=== PATIENT | male | born 1965 ===

== ENCOUNTER 2020-12-15 11:01 | Inpatient (IN) | payer MEDICAID ==
[~2020-12-15] VITALS: Ht 188 cm; Wt 109.1 kg
[2020-12-15] MEDS ORDERED: dexamethasone sod phosphate 10mg/ml inj IV STA (12:06)
[2020-12-15] MEDS ORDERED: diltiazem 5mg/ml 5ml inj. IV ONE (12:40)
[2020-12-15 13:00] LABS: ABG BASE EXCESS 3.3 mmol/L (-2.0-2.0); ABG HCO3 25.6 mmol/L (22.0-26.0); ABG PCO2 (T) 33.3 mmHg (35.0-48.0); ABG PO2 (T) 57.7 mmHg (75.0-100.0); ALLEN'S TEST POSITIVE; FCOHb 0.7 % (0.0-3.9); FLOW 15 L/min; FMetHb 0.1 % (0.0-1.5); FO2Hb 90.3 % (94-97); PATIENT TEMPERATURE 37.8; TOTAL HEMOGLOBIN 14.9 G/dl (14.0-18.0)
[2020-12-15 13:01] LABS: BASOPHILS % (AUTO) 0.2 % (0-1); EOSINOPHILS % (AUTO) 0 % (0-6); HEMATOCRIT 42.2 % (42.0-52.0); HEMOGLOBIN 14.6 g/dl (14.0-17.9); LYMPHOCYTES # (AUTO) 0.6 X10'3 (1.1-4.8); LYMPHOCYTES % (AUTO) 12.6 % (21-51); MEAN CORPUSCULAR HEMOGLOBIN 30.7 PG (27.0-31.0); MEAN CORPUSCULAR HGB CONC 34.7 g/dL (33.0-36.5); MEAN CORPUSCULAR VOLUME 88.3 FL (78-98); MEAN PLATELET VOLUME 8.6 FL (7.4-10.4); MONOCYTES # (AUTO) 0.6 X10'3 (0-0.9); MONOCYTES % (AUTO) 12.6 % (2-12); NEUTROPHILS # (AUTO) 3.3 X10'3 (1.8-7.7); NEUTROPHILS % (AUTO) 74.6 % (42-75); PLATELET COUNT 148 X10'3 (140-440); RED BLOOD COUNT 4.78 X10'6 (4.70-6.10); RED CELL DISTRIBUTION WIDTH 13.3 % (11.5-14.5); WHITE BLOOD COUNT 4.4 X10'3 (4.5-11.0)
[2020-12-15 13:12] LABS: ALANINE AMINOTRANSFERASE 54 U/L (12-78); ALBUMIN 3.1 G/DL (3.4-5.0); ALBUMIN/GLOBULIN RATIO 0.8 (1.1-1.5); ALKALINE PHOSPHATASE 39 IU/L (46-116); ANION GAP 12 (8-16); ASPARTATE AMINO TRANSFERASE 70 U/L (10-37); BILIRUBIN,TOTAL 0.6 MG/DL (0.1-1.0); BLOOD UREA NITROGEN 21 MG/DL (7-18); BUN/CREATININE RATIO 17.6 (5.4-32.0); CHLORIDE 101 MMOL/L (99-107); CREATININE 1.19 MG/DL (0.60-1.10); GLUCOSE 133 MG/DL (70-104); SODIUM 138 MMOL/L (135-145); TOTAL CARBON DIOXIDE 25.1 MMOL/L (24-32); TOTAL PROTEIN 7.1 G/DL (6.4-8.2); eGFR 63 ML/MIN
[2020-12-15] MEDS ORDERED: acetaminophen 325mg tablet PO ONE (13:15)
[2020-12-15 13:20] LABS: D-DIMER 0.81 MG/L FEU (0-0.50); PARTIAL THROMBOPLASTIN TIME 30 SECONDS (22-32)
[2020-12-15] MEDS ORDERED: dexamethasone 6 MG in D5W 100ml IV soln IV ONE (13:30)
[2020-12-15] MEDS ORDERED: iohexol 350MG/ML 100ml bottle IV ONE (13:36)
[2020-12-15] MEDS ORDERED: diltiazem-NS 100mg/100ml 100 ML IV SCH (13:40)
[2020-12-15 13:48] LABS: C-REACTIVE PROTEIN 9.71 MG/DL (0.0-0.5); FERRITIN 1489 NG/ML (26-388); LACTATE DEHYDROGENASE 584 U/L (85-227)
[2020-12-15] MEDS ORDERED: REMDESIVIR INJ 200 MG in normal saline 100ml IV soln 60 ML IV ONE (14:30)
--- NOTE | 2020-12-15 14:38 | NUR ---
BACK FROM CT ACCOMPANIED BY NURSE AND TECH. TOLERATED WELL.
--- NOTE | 2020-12-15 15:21 | NUR ---
V60 PLUS Addendum: 12/15/20 at 1522 by Lacie CAMPOS Amended: Links added.
[2020-12-15] MEDS ORDERED: bisacodyl 10mg suppository rectal RC PRN (15:40)
[2020-12-15] MEDS ORDERED: morphine 2 MG/ML inj. syringe IV PRN ×2 (15:40)
[2020-12-15] MEDS ORDERED: magnesium Cl slow-release 64mg tablet PO PRN (15:40)
[2020-12-15] MEDS ORDERED: PERFLUTREN PROTEIN-A MICROSPHR (Optison) 0.22 MG/ML 3ML VIAL IV ONE (15:40)
[2020-12-15] MEDS ORDERED: acetaminophen 650mg rectal suppository RC PRN (15:40)
[2020-12-15] MEDS ORDERED: HYDROcodone/acetaminophen 10/325mg tab PO PRN (15:40)
[2020-12-15] MEDS ORDERED: magnesium 2GM in 50ml NS 50 ML IV PRN (15:40)
[2020-12-15] MEDS ORDERED: potassium Cl 20 mEq SR tablet PO PRN ×2 (15:40)
[2020-12-15] MEDS ORDERED: magnesium 4gm in 100ml NS 100 ML IV PRN (15:40)
[2020-12-15] MEDS ORDERED: HYDROcodone/acetaminophen 5mg/325mg tablet PO PRN (15:40)
[2020-12-15] MEDS ORDERED: acetaminophen 325mg tablet PO PRN (15:40)
[2020-12-15] MEDS ORDERED: diphenhydrAMINE 25mg capsule PO PRN (15:40)
[2020-12-15] MEDS ORDERED: ondansetron/PF 4mg/2ml inj IV PRN (15:40)
[2020-12-15] MEDS ORDERED: potassium Cl 40MEQ/1/2NS 520ml 520 ML IV PRN ×2 (15:40)
[2020-12-15] MEDS ORDERED: magnesium hydroxide 30ml (MOM) UD suspension PO PRN (15:40)
[2020-12-15] MEDS ORDERED: diltiazem-D5W 125mg/125ml 125 ML IV SCH (15:45)
[2020-12-15] MEDS ORDERED: IBUP-24 PO (15:54)
--- NOTE | 2020-12-15 15:56 | NUR ---
cande sister [phone]
[2020-12-15 16:07] LABS: HEMOGLOBIN A1C 6.1 % (4.5-6.2)
[2020-12-15] MEDS: normal saline 1000ml 1,000 ML IV SCH (18:22)
[2020-12-15 18:55] LABS: CLARITY,URINE CLEAR (Clear); COLOR,URINE YELLOW (Yellow); UA COLLECTION TYPE CLN CATCH MIDSTREAM
[2020-12-15 18:56] LABS: GLUCOSE, URINE NEGATIVE (Neg); KETONES,URINE NEGATIVE (Neg); LEUKOCYTE ESTERASE ,URINE NEGATIVE (Neg); NITRITES, URINE NEGATIVE (Neg); OCCULT BLOOD,URINE MODERATE (Neg); PROTEIN,URINE 100 mg/dl (Neg); UROBILINOGEN,URINE 0.2 E.U/dL (0.2-1.0)
[2020-12-15 18:58] LABS: BACTERIA,URINE NONE SEEN /HPF (Neg); RBC,URINE 0-2 /HPF (0-2); SQUAMOUS EPITHELIAL CELL,UR FEW /LPF (FEW); WBC,URINE 0-4 /HPF (0-4)
--- NOTE | 2020-12-15 19:24 | NUR ---
ASSUMED CARE OF PT. PT ON HI FLOW 100% SATTING AT 94%. WAITING ON RT EVALUATION. PRIOR RN PAGED RT. PT AFEBRILE BUT PROFUSELY DIAPHORETIC. DENIES CHEST PAIN. TROPONINS UNREMARKABLE. WILL SPEAK TO HOSPITALIST CONCERNING HEART RATE. PT'S ONLY COMPLAINT IS SHORTNESS OF BREATH AT THIS TIME.
--- NOTE | 2020-12-15 19:45 | NUR ---
SPOKE TO DR FIGUEROA CONCERNING PT'S HEART RHYTHM AND RATE. PENDING NEW MEDICATION ORDERS
--- NOTE | 2020-12-15 19:58 | NUR ---
SPOKE TO RT CONCERNING PT. INSTRUCTED TO PAGE AGAIN IF PT O2 TRENDS DOWN TO 85%
[2020-12-15] MEDS: K and/or MAG REPLACEMENT MC SCH (20:00)
[2020-12-15] MEDS ORDERED: dexamethasone 4mg/ml inj IV SCH (20:00)
[2020-12-15] MEDS: docusate sod 100mg capsule PO SCH (20:00)
[2020-12-15] MEDS ORDERED: enoxaparin 100mg/ml syringe SUBCUT SCH (20:00)
[2020-12-15] MEDS: diltiazem-NS 100mg/100ml 100 ML IV SCH (20:56)
--- NOTE | 2020-12-15 21:00 | NUR ---
LAB IS PREPPING PT'S DECADRON
--- NOTE | 2020-12-16 00:04 | NUR ---
RT AT BEDSIDE PLACEING PT ON BIPAP.
[2020-12-16] MEDS: dexamethasone 6 MG in D5W 100ml IV soln IV SCH ×3 (00:14→21:20)
--- NOTE | 2020-12-16 00:17 | NUR ---
PT ON BIPAP. NEW LINE PLACE. MEDS RUNNING. DECADRON GIVEN LATE D/T CRITICALLY LOW STAFF
--- NOTE | 2020-12-16 03:37 | NUR ---
UPDATED PT'S FAMILY, TORIE, OVER THE PHONE
--- NOTE | 2020-12-16 05:53 | NUR ---
PT USED BEDSIDE COMMODE AND HAD A BOWEL MOVEMENT. PT'S LINENS HAVE BEEN CHANGED. PT WAS GIVEN A WIPE BATH. PT BACK ON BED. TOLERATING BIPAP WELL.
[2020-12-16 07:12] LABS: BASOPHILS % (AUTO) 0.1 % (0-1); EOSINOPHILS % (AUTO) 0 % (0-6); HEMATOCRIT 46.2 % (42.0-52.0); HEMOGLOBIN 15.9 g/dl (14.0-17.9); LYMPHOCYTES # (AUTO) 0.5 X10'3 (1.1-4.8); LYMPHOCYTES % (AUTO) 9.6 % (21-51); MEAN CORPUSCULAR HEMOGLOBIN 30.5 PG (27.0-31.0); MEAN CORPUSCULAR HGB CONC 34.4 g/dL (33.0-36.5); MEAN CORPUSCULAR VOLUME 88.6 FL (78-98); MEAN PLATELET VOLUME 9.3 FL (7.4-10.4); MONOCYTES # (AUTO) 0.5 X10'3 (0-0.9); MONOCYTES % (AUTO) 9.2 % (2-12); NEUTROPHILS # (AUTO) 4.2 X10'3 (1.8-7.7); NEUTROPHILS % (AUTO) 81.1 % (42-75); PLATELET COUNT 180 X10'3 (140-440); RED BLOOD COUNT 5.21 X10'6 (4.70-6.10); RED CELL DISTRIBUTION WIDTH 14.1 % (11.5-14.5); WHITE BLOOD COUNT 5.1 X10'3 (4.5-11.0)
[2020-12-16 07:18] LABS: D-DIMER 0.81 MG/L FEU (0-0.50)
[2020-12-16 07:43] LABS: ALANINE AMINOTRANSFERASE 50 U/L (12-78); ALBUMIN 2.8 G/DL (3.4-5.0); ALBUMIN/GLOBULIN RATIO 0.7 (1.1-1.5); ALKALINE PHOSPHATASE 44 IU/L (46-116); ANION GAP 12 (8-16); ASPARTATE AMINO TRANSFERASE 65 U/L (10-37); BILIRUBIN,TOTAL 0.6 MG/DL (0.1-1.0); BLOOD UREA NITROGEN 27 MG/DL (7-18); BUN/CREATININE RATIO 25.2 (5.4-32.0); CALCIUM 7.8 MG/DL (8.5-10.1); CHLORIDE 106 MMOL/L (99-107); CHOL/HDL RATIO 7.2 (0.00-4.99); CHOLESTEROL 137 MG/DL (0-200); CREATININE 1.07 MG/DL (0.60-1.10); GLUCOSE 173 MG/DL (70-104); HDL CHOLESTEROL 19 MG/DL (35-60); LACTATE DEHYDROGENASE 756 U/L (85-227); LDL CHOLESTEROL 83 MG/DL (50-100); PHOSPHORUS 3.6 MG/DL (2.3-4.5); POTASSIUM 3.9 MMOL/L (3.5-5.1); SODIUM 141 MMOL/L (135-145); TOTAL CARBON DIOXIDE 22.6 MMOL/L (24-32); TOTAL PROTEIN 6.9 G/DL (6.4-8.2); TRIGLYCERIDES 134 MG/DL (20-135); TROPONIN I < 0.04 NG/ML (0.0-0.05); eGFR 71 ML/MIN
[2020-12-16] MEDS: K and/or MAG REPLACEMENT MC SCH ×2 (08:00→20:00)
[2020-12-16] MEDS: docusate sod 100mg capsule PO SCH ×2 (08:00→20:00)
[2020-12-16] MEDS ORDERED: TOCILIZUMAB 80MG/4 ML INJ. 800 MG in normal saline 100ml IV soln 60 ML IV ONE (10:50)
[2020-12-16] MEDS: REMDESIVIR INJ 100 MG in normal saline 100ml IV soln 80 ML IV SCH (11:08)
[2020-12-16] MEDS: diltiazem-NS 100mg/100ml 100 ML IV SCH (17:09)
[2020-12-16] MEDS: enoxaparin 60mg/0.6ml syringe SUBCUT SCH (21:21)
[2020-12-16 23:00] VITALS: BP 131/65
[2020-12-17] VITALS (7 sets, daily range): BP systolic 118–127; BP diastolic 68–103
--- NOTE | 2020-12-17 06:25 | NUR ---
Problems reprioritized. Patient report given, questions answered & plan of care reviewed with BEATRIZ Rush.
--- NOTE | 2020-12-17 06:30 | NUR ---
Patient in room PCU 3008. I have received report from Ary HENDERSON and had the opportunity to ask questions and assume patient care.
[2020-12-17 06:51] LABS: BASOPHILS % (AUTO) 0.2 % (0-1); EOSINOPHILS % (AUTO) 0 % (0-6); HEMATOCRIT 44.2 % (42.0-52.0); HEMOGLOBIN 15.3 g/dl (14.0-17.9); LYMPHOCYTES # (AUTO) 0.6 X10'3 (1.1-4.8); MEAN CORPUSCULAR HEMOGLOBIN 30.8 PG (27.0-31.0); MEAN CORPUSCULAR HGB CONC 34.6 g/dL (33.0-36.5); MEAN CORPUSCULAR VOLUME 88.9 FL (78-98); MEAN PLATELET VOLUME 9.2 FL (7.4-10.4); MONOCYTES # (AUTO) 0.5 X10'3 (0-0.9); MONOCYTES % (AUTO) 10.4 % (2-12); NEUTROPHILS # (AUTO) 3.7 X10'3 (1.8-7.7); NEUTROPHILS % (AUTO) 77.4 % (42-75); PLATELET COUNT 252 X10'3 (140-440); RED BLOOD COUNT 4.97 X10'6 (4.70-6.10); RED CELL DISTRIBUTION WIDTH 14.1 % (11.5-14.5); WHITE BLOOD COUNT 4.8 X10'3 (4.5-11.0)
[2020-12-17 07:02] LABS: ALANINE AMINOTRANSFERASE 48 U/L (12-78); ALBUMIN 2.6 G/DL (3.4-5.0); ALBUMIN/GLOBULIN RATIO 0.6 (1.1-1.5); ALKALINE PHOSPHATASE 42 IU/L (46-116); ANION GAP 9 (8-16); ASPARTATE AMINO TRANSFERASE 53 U/L (10-37); BILIRUBIN,TOTAL 0.5 MG/DL (0.1-1.0); BLOOD UREA NITROGEN 39 MG/DL (7-18); BUN/CREATININE RATIO 37.5 (5.4-32.0); C-REACTIVE PROTEIN 6.45 MG/DL (0.0-0.5); CALCIUM 7.9 MG/DL (8.5-10.1); CHLORIDE 108 MMOL/L (99-107); CREATININE 1.04 MG/DL (0.60-1.10); GLUCOSE 200 MG/DL (70-104); LACTATE DEHYDROGENASE 777 U/L (85-227); MAGNESIUM 3.6 MG/DL (1.5-2.4); PHOSPHORUS 3.7 MG/DL (2.3-4.5); POTASSIUM 3.6 MMOL/L (3.5-5.1); SODIUM 142 MMOL/L (135-145); TOTAL CARBON DIOXIDE 25.2 MMOL/L (24-32); TOTAL PROTEIN 6.7 G/DL (6.4-8.2); eGFR 74 ML/MIN
[2020-12-17] MEDS: enoxaparin 60mg/0.6ml syringe SUBCUT SCH ×2 (07:20→21:27)
[2020-12-17] MEDS: dexamethasone 6 MG in D5W 100ml IV soln IV SCH ×2 (07:20→21:25)
[2020-12-17] MEDS: K and/or MAG REPLACEMENT MC SCH ×2 (08:00→20:00)
[2020-12-17] MEDS: docusate sod 100mg capsule PO SCH ×2 (08:00→20:00)
[2020-12-17] MEDS: REMDESIVIR INJ 100 MG in normal saline 100ml IV soln 80 ML IV SCH (09:34)
[2020-12-17] MEDS: diltiazem-NS 100mg/100ml 100 ML IV SCH (12:16)
[2020-12-17] MEDS: normal saline 1000ml 1,000 ML IV SCH (14:54)
--- NOTE | 2020-12-17 18:25 | NUR ---
Patient in room PCU 3008. I have received report from BEATRIZ Carbajal and had the opportunity to ask questions and assume patient care.
--- NOTE | 2020-12-17 18:27 | NUR ---
Problems reprioritized. Patient report given, questions answered & plan of care reviewed with Alice HENDERSON. Patient stable at transfer of care.
[2020-12-18 03:00] VITALS: BP 114/84
[2020-12-18 06:00] VITALS: BP 109/80
[2020-12-18] MEDS: diltiazem-NS 100mg/100ml 100 ML IV SCH (06:21)
--- NOTE | 2020-12-18 06:22 | NUR ---
Problems reprioritized. Patient report given, questions answered & plan of care reviewed with BEATRIZ Carbajal.
--- NOTE | 2020-12-18 06:38 | NUR ---
Patient in room PCU 3008. I have received report from Alice HENDERSON and had the opportunity to ask questions and assume patient care.
[2020-12-18 07:14] LABS: BASOPHILS % (AUTO) 0.3 % (0-1); EOSINOPHILS % (AUTO) 0.1 % (0-6); HEMATOCRIT 44.2 % (42.0-52.0); HEMOGLOBIN 15.2 g/dl (14.0-17.9); LYMPHOCYTES # (AUTO) 0.7 X10'3 (1.1-4.8); LYMPHOCYTES % (AUTO) 8.5 % (21-51); MEAN CORPUSCULAR HEMOGLOBIN 30.6 PG (27.0-31.0); MEAN CORPUSCULAR HGB CONC 34.4 g/dL (33.0-36.5); MEAN CORPUSCULAR VOLUME 88.7 FL (78-98); MEAN PLATELET VOLUME 8.5 FL (7.4-10.4); MONOCYTES # (AUTO) 0.8 X10'3 (0-0.9); MONOCYTES % (AUTO) 10.5 % (2-12); NEUTROPHILS # (AUTO) 6.4 X10'3 (1.8-7.7); NEUTROPHILS % (AUTO) 80.6 % (42-75); PLATELET COUNT 299 X10'3 (140-440); RED BLOOD COUNT 4.98 X10'6 (4.70-6.10); RED CELL DISTRIBUTION WIDTH 13.7 % (11.5-14.5)
[2020-12-18 07:34] LABS: ALANINE AMINOTRANSFERASE 54 U/L (12-78); ALBUMIN 2.9 G/DL (3.4-5.0); ALBUMIN/GLOBULIN RATIO 0.7 (1.1-1.5); ALKALINE PHOSPHATASE 50 IU/L (46-116); ANION GAP 12 (8-16); ASPARTATE AMINO TRANSFERASE 53 U/L (10-37); BILIRUBIN,TOTAL 0.7 MG/DL (0.1-1.0); BLOOD UREA NITROGEN 30 MG/DL (7-18); BUN/CREATININE RATIO 32.6 (5.4-32.0); C-REACTIVE PROTEIN 2.78 MG/DL (0.0-0.5); CALCIUM 7.9 MG/DL (8.5-10.1); CHLORIDE 103 MMOL/L (99-107); CREATININE 0.92 MG/DL (0.60-1.10); GLUCOSE 152 MG/DL (70-104); LACTATE DEHYDROGENASE 821 U/L (85-227); MAGNESIUM 3.2 MG/DL (1.5-2.4); PHOSPHORUS 3.3 MG/DL (2.3-4.5); POTASSIUM 3.9 MMOL/L (3.5-5.1); SODIUM 140 MMOL/L (135-145); TOTAL CARBON DIOXIDE 25.3 MMOL/L (24-32); TOTAL PROTEIN 6.8 G/DL (6.4-8.2); eGFR 85 ML/MIN
[2020-12-18] MEDS: K and/or MAG REPLACEMENT MC SCH ×2 (08:00→20:06)
[2020-12-18] MEDS: REMDESIVIR INJ 100 MG in normal saline 100ml IV soln 80 ML IV SCH (08:31)
[2020-12-18] MEDS: enoxaparin 60mg/0.6ml syringe SUBCUT SCH ×2 (08:32→20:05)
[2020-12-18] MEDS: docusate sod 100mg capsule PO SCH ×2 (08:32→20:06)
[2020-12-18 09:58] LABS: D-DIMER 0.96 MG/L FEU (0-0.50)
--- NOTE | 2020-12-18 10:13 | NUR ---
Paged Dr. Murray regarding heart rate PAGER ID: [phone] MESSAGE: [phone] David Menon. Its been 1.5 hours since metoprolol, we got him up and his heart rate went up to 170s. At rest 110s. ERIK Carbajal
[2020-12-18 11:00] VITALS: BP 121/83
[2020-12-18] MEDS: dexamethasone 6 MG in D5W 100ml IV soln IV SCH ×2 (11:08→20:06)
[2020-12-18 15:00] VITALS: BP 116/85
[2020-12-18 18:00] VITALS: BP 176/80
--- NOTE | 2020-12-18 18:34 | NUR ---
Problems reprioritized. Patient report given, questions answered & plan of care reviewed with Evangelina HENDERSON. Patient stable at transfer of care.
[2020-12-18 22:00] VITALS: BP 136/82
[2020-12-19] VITALS (8 sets, daily range): BP systolic 111–147; BP diastolic 66–89
--- NOTE | 2020-12-19 00:50 | NUR ---
IV medication discontinued; PO med given. Pt HL at this time.. Continue to monitor pt 's vitals and fall precaution. Addendum: 12/20/20 at 0259 by Fariha Sorensen RN 12/20/20 at 0050
--- NOTE | 2020-12-19 02:00 | NUR ---
Pt resting , no signs of any discomfort, no complaints of respiratory distress. BIPAP working well. Continuous rounding in progress. Safety precaution in place
[2020-12-19] MEDS: diltiazem-NS 100mg/100ml 100 ML IV SCH (04:20)
--- NOTE | 2020-12-19 06:17 | NUR ---
Problems reprioritized. Patient report given, questions answered & plan of care reviewed with Michelle HENDERSON.
--- NOTE | 2020-12-19 06:30 | NUR ---
Patient in room PCU 3008. I have received report from Evangelina HENDERSON and had the opportunity to ask questions and assume patient care.
[2020-12-19 07:04] LABS: BASOPHILS % (AUTO) 0.1 % (0-1); EOSINOPHILS % (AUTO) 0 % (0-6); HEMATOCRIT 44.6 % (42.0-52.0); HEMOGLOBIN 15.1 g/dl (14.0-17.9); LYMPHOCYTES # (AUTO) 0.7 X10'3 (1.1-4.8); LYMPHOCYTES % (AUTO) 8.2 % (21-51); MEAN CORPUSCULAR HEMOGLOBIN 30.6 PG (27.0-31.0); MEAN CORPUSCULAR HGB CONC 33.9 g/dL (33.0-36.5); MEAN CORPUSCULAR VOLUME 90.2 FL (78-98); MEAN PLATELET VOLUME 8.8 FL (7.4-10.4); MONOCYTES # (AUTO) 0.8 X10'3 (0-0.9); MONOCYTES % (AUTO) 9.2 % (2-12); NEUTROPHILS # (AUTO) 7.3 X10'3 (1.8-7.7); NEUTROPHILS % (AUTO) 82.5 % (42-75); PLATELET COUNT 298 X10'3 (140-440); RED BLOOD COUNT 4.94 X10'6 (4.70-6.10); RED CELL DISTRIBUTION WIDTH 13.7 % (11.5-14.5); WHITE BLOOD COUNT 8.8 X10'3 (4.5-11.0)
[2020-12-19 07:05] LABS: D-DIMER 1.12 MG/L FEU (0-0.50)
[2020-12-19 07:21] LABS: ALANINE AMINOTRANSFERASE 65 U/L (12-78); ALBUMIN 2.6 G/DL (3.4-5.0); ALBUMIN/GLOBULIN RATIO 0.7 (1.1-1.5); ALKALINE PHOSPHATASE 47 IU/L (46-116); ANION GAP 10 (8-16); ASPARTATE AMINO TRANSFERASE 54 U/L (10-37); BILIRUBIN,TOTAL 0.7 MG/DL (0.1-1.0); BLOOD UREA NITROGEN 26 MG/DL (7-18); BUN/CREATININE RATIO 29.2 (5.4-32.0); CALCIUM 7.8 MG/DL (8.5-10.1); CHLORIDE 100 MMOL/L (99-107); CREATININE 0.89 MG/DL (0.60-1.10); GLUCOSE 178 MG/DL (70-104); LACTATE DEHYDROGENASE 753 U/L (85-227); PHOSPHORUS 3.5 MG/DL (2.3-4.5); SODIUM 133 MMOL/L (135-145); TOTAL CARBON DIOXIDE 23.1 MMOL/L (24-32); TOTAL PROTEIN 6.2 G/DL (6.4-8.2); eGFR 88 ML/MIN
[2020-12-19] MEDS: K and/or MAG REPLACEMENT MC SCH ×2 (07:49→20:00)
--- NOTE | 2020-12-19 09:04 | NUR ---
Waiting for noel to be made in pharmacy.
[2020-12-19] MEDS: dexamethasone 6 MG in D5W 100ml IV soln IV SCH ×2 (09:05→20:24)
[2020-12-19] MEDS: docusate sod 100mg capsule PO SCH ×2 (09:06→20:25)
[2020-12-19] MEDS: enoxaparin 60mg/0.6ml syringe SUBCUT SCH ×2 (09:06→20:26)
[2020-12-19] MEDS: REMDESIVIR INJ 100 MG in normal saline 100ml IV soln 80 ML IV SCH (12:01)
--- NOTE | 2020-12-19 14:59 | NUR ---
Initial: Pt admitted w/ acute respiratory failure secondary to Covid per EMR. Pt currently on BiPAP though switches to HFNC to eat per MD note. Pt currently on Heart Healthy diet w/ mostly 25% intake of meals not meeting needs. Recommend Liberalizing to Regular diet in view of poor PO intake and lipid panel if MD agreeable. Pt may benefit from Ensure Enlive TID to help meet nutrient needs. LBM 12/17 receiving routine colace. Will continue to monitor and make recommendations as appropriate. Recs: 1. Liberalize to Regular diet if MD agreeable 2. Ensure Enlive TID; pending MD approval 3. Bowel care per rx 4. Scaled wt this admit, weekly wt thereafter Addendum: 12/19/20 at [address] Amended: Links added.
--- NOTE | 2020-12-19 15:34 | NUR ---
Paged Dr. Saravia regarding diet PAGER ID: [phone] MESSAGE: [phone] Mitch Pimentel. Can we switch patient to regular diet? U Crystal
[2020-12-19] MEDS: normal saline 1000ml 1,000 ML IV SCH (15:40)
--- NOTE | 2020-12-19 17:41 | NUR ---
[place] documentation: I have reviewed and agree with all interventions, assessments performed and documented by Cheri HENDERSON.
--- NOTE | 2020-12-19 17:42 | NUR ---
[place] Medication Administration: For this medication-pass time frame, all medication were reviewed, dispensed, administered and documented per hospital policy by Cheri HENDERSON.
[2020-12-19] MEDS ORDERED: lactose-reduced food (Ensure Enlive) - 237ml bottle PO SCH (18:00)
--- NOTE | 2020-12-19 18:30 | NUR ---
Received pt sitting up in bed receiving treatment via BIPAP.Cardiac monitoring via mobile monitor #62. Cardizem IV drips infusing well. Pt denied any discomfort.Vitals stable on the monitor. Call light , bedside table and urinal place within reach with instruction to call for assistance as needed.
--- NOTE | 2020-12-19 18:32 | NUR ---
Problems reprioritized. Patient report given, questions answered & plan of care reviewed with Fariha HENDERSON, patient stable upon transfer of care.
[2020-12-20] VITALS (7 sets, daily range): BP systolic 115–135; BP diastolic 74–87
[2020-12-20] MEDS: diltiazem CD 180mg cap (once-daily) PO SCH ×2 (00:30→07:07)
[2020-12-20] MEDS: docusate sod 100mg capsule PO SCH ×2 (07:07→20:00)
[2020-12-20] MEDS: enoxaparin 100mg/ml syringe SUBCUT SCH ×2 (07:08→20:25)
[2020-12-20] MEDS: dexamethasone 6 MG in D5W 100ml IV soln IV SCH ×2 (07:08→20:25)
[2020-12-20 07:34] LABS: BASOPHILS % (AUTO) 0.2 % (0-1); EOSINOPHILS % (AUTO) 0 % (0-6); HEMATOCRIT 45.6 % (42.0-52.0); HEMOGLOBIN 15.7 g/dl (14.0-17.9); LYMPHOCYTES # (AUTO) 0.7 X10'3 (1.1-4.8); LYMPHOCYTES % (AUTO) 5.7 % (21-51); MEAN CORPUSCULAR HEMOGLOBIN 30.5 PG (27.0-31.0); MEAN CORPUSCULAR HGB CONC 34.4 g/dL (33.0-36.5); MEAN CORPUSCULAR VOLUME 88.6 FL (78-98); MEAN PLATELET VOLUME 8.4 FL (7.4-10.4); MONOCYTES # (AUTO) 0.9 X10'3 (0-0.9); MONOCYTES % (AUTO) 7.1 % (2-12); NEUTROPHILS # (AUTO) 11.3 X10'3 (1.8-7.7); PLATELET COUNT 338 X10'3 (140-440); RED BLOOD COUNT 5.15 X10'6 (4.70-6.10); RED CELL DISTRIBUTION WIDTH 13.6 % (11.5-14.5)
[2020-12-20 07:44] LABS: D-DIMER 1.73 MG/L FEU (0-0.50)
[2020-12-20 07:52] LABS: ALANINE AMINOTRANSFERASE 81 U/L (12-78); ALBUMIN 2.7 G/DL (3.4-5.0); ALBUMIN/GLOBULIN RATIO 0.8 (1.1-1.5); ALKALINE PHOSPHATASE 51 IU/L (46-116); ANION GAP 8 (8-16); ASPARTATE AMINO TRANSFERASE 56 U/L (10-37); BILIRUBIN,TOTAL 0.9 MG/DL (0.1-1.0); BLOOD UREA NITROGEN 25 MG/DL (7-18); BUN/CREATININE RATIO 29.1 (5.4-32.0); C-REACTIVE PROTEIN 0.65 MG/DL (0.0-0.5); CALCIUM 7.9 MG/DL (8.5-10.1); CHLORIDE 105 MMOL/L (99-107); CREATININE 0.86 MG/DL (0.60-1.10); GLUCOSE 134 MG/DL (70-104); LACTATE DEHYDROGENASE 781 U/L (85-227); MAGNESIUM 2.9 MG/DL (1.5-2.4); PHOSPHORUS 3.3 MG/DL (2.3-4.5); POTASSIUM 4.8 MMOL/L (3.5-5.1); SODIUM 137 MMOL/L (135-145); TOTAL CARBON DIOXIDE 23.8 MMOL/L (24-32); TOTAL PROTEIN 6.1 G/DL (6.4-8.2); eGFR > 90 ML/MIN
--- NOTE | 2020-12-20 11:59 | NUR ---
RT was paged regarding , Mitch Nunnjaydon room 3008 in PCU is desating to 82%, he is on 100% 50 L of oxygen . RR is 33 . His spO2 is 97% on a prone position and RR is 14 B per minute .
--- NOTE | 2020-12-20 13:28 | NUR ---
Dr. Saravia paged regarding pt name Mitch Pimentel, on PCU room 08A , HR has been elevated, it is between 120 to 160 . he is on high flow 100% 50L and spO2 is in 80s, RT paged and came to see him . SHEWIT [id number]
--- NOTE | 2020-12-20 18:45 | NUR ---
Pt in bed AAOx4 on BIPAP and monitor tech. Pt saturating 91-93 with increased respiratory rate. Pt denied any discomfort. Call light and bedside table placed near pt with instruction to call for assistance. Safety measure in place.
[2020-12-20] MEDS: K and/or MAG REPLACEMENT MC SCH (19:50)
[2020-12-21 02:18] VITALS: BP 117/82
--- NOTE | 2020-12-21 02:19 | NUR ---
Pt is having diarrhea, stool softener was held; Po hydration given.
--- NOTE | 2020-12-21 05:41 | NUR ---
loose stool x3 noted; notified for medication. Med ordered.
[2020-12-21 06:00] VITALS: BP 129/70
--- NOTE | 2020-12-21 06:45 | NUR ---
Pt resting in bed on BIPAP, no distress noted. Vital signs remains stable, pt denied pain.
[2020-12-21] MEDS: dexamethasone 6 MG in D5W 100ml IV soln IV SCH ×2 (07:35→20:00)
[2020-12-21] MEDS: diltiazem CD 180mg cap (once-daily) PO SCH ×2 (07:35→08:02)
[2020-12-21] MEDS: enoxaparin 100mg/ml syringe SUBCUT SCH ×2 (07:35→08:02)
[2020-12-21] MEDS: docusate sod 100mg capsule PO SCH ×2 (08:02→20:00)
[2020-12-21 11:00] VITALS: BP 127/91
[2020-12-21 15:00] VITALS: BP 130/85
[2020-12-21] MEDS: normal saline 1000ml 1,000 ML IV SCH (15:40)
--- NOTE | 2020-12-21 18:30 | NUR ---
Patient in room PCU 3008. I have received report from BEATRIZ Mercado and had the opportunity to ask questions and assume patient care.
[2020-12-21 19:00] VITALS: BP 101/66
[2020-12-21] MEDS: K and/or MAG REPLACEMENT MC SCH (20:00)
[2020-12-21 23:00] VITALS: BP 128/76
--- NOTE | 2020-12-22 06:51 | NUR ---
Problems reprioritized. Patient report given, questions answered & plan of care reviewed with BEATRIZ Barragan.
--- NOTE | 2020-12-22 06:55 | NUR ---
Patient in room PCU 3008. I have received report from Alice HENDERSON and had the opportunity to ask questions and assume patient care.
[2020-12-22 07:00] VITALS: BP 106/84
[2020-12-22 07:52] LABS: ALANINE AMINOTRANSFERASE 84 U/L (12-78); ALBUMIN 2.9 G/DL (3.4-5.0); ALBUMIN/GLOBULIN RATIO 0.9 (1.1-1.5); ALKALINE PHOSPHATASE 64 IU/L (46-116); ANION GAP 11 (8-16); ASPARTATE AMINO TRANSFERASE 31 U/L (10-37); BLOOD UREA NITROGEN 30 MG/DL (7-18); BUN/CREATININE RATIO 29.7 (5.4-32.0); CALCIUM 7.8 MG/DL (8.5-10.1); CHLORIDE 106 MMOL/L (99-107); CREATININE 1.01 MG/DL (0.60-1.10); D-DIMER 2.18 MG/L FEU (0-0.50); GLUCOSE 163 MG/DL (70-104); POTASSIUM 4.5 MMOL/L (3.5-5.1); SODIUM 136 MMOL/L (135-145); TOTAL CARBON DIOXIDE 19.2 MMOL/L (24-32); TOTAL PROTEIN 6.2 G/DL (6.4-8.2); eGFR 76 ML/MIN
--- NOTE | 2020-12-22 07:59 | NUR ---
page to Trevor about high HR Pt Mitch Pimentel 3008 is in SVT at 160-170s, BP 106/81, 88% on bipap 60L at 80%FiO2. Just gave his PO Cardizem 180mg, no PRNs available for HR. Pls advise, Laurel VALENCIA
[2020-12-22] MEDS: enoxaparin 100mg/ml syringe SUBCUT SCH ×2 (08:00→20:53)
[2020-12-22] MEDS: diltiazem CD 180mg cap (once-daily) PO SCH (08:00)
[2020-12-22] MEDS: dexamethasone 6 MG in D5W 100ml IV soln IV SCH ×2 (08:00→20:50)
[2020-12-22] MEDS: K and/or MAG REPLACEMENT MC SCH ×2 (08:00→20:00)
[2020-12-22] MEDS: docusate sod 100mg capsule PO SCH ×2 (08:00→20:00)
[2020-12-22 08:46] LABS: BASOPHILS % (AUTO) 0.2 % (0-1); EOSINOPHILS # (AUTO) 0.1 X10'3 (0-0.9); EOSINOPHILS % (AUTO) 0.3 % (0-6); HEMATOCRIT 51.3 % (42.0-52.0); HEMOGLOBIN 17.5 g/dl (14.0-17.9); LYMPHOCYTES # (AUTO) 0.7 X10'3 (1.1-4.8); LYMPHOCYTES % (AUTO) 3.8 % (21-51); MEAN CORPUSCULAR HEMOGLOBIN 30.4 PG (27.0-31.0); MEAN CORPUSCULAR VOLUME 89.3 FL (78-98); MEAN PLATELET VOLUME 7.6 FL (7.4-10.4); MONOCYTES % (AUTO) 5.3 % (2-12); NEUTROPHILS # (AUTO) 16.3 X10'3 (1.8-7.7); NEUTROPHILS % (AUTO) 90.4 % (42-75); PLATELET COUNT 406 X10'3 (140-440); RED BLOOD COUNT 5.75 X10'6 (4.70-6.10); RED CELL DISTRIBUTION WIDTH 13.8 % (11.5-14.5)
[2020-12-22] MEDS: loperamide 2mg capsule PO PRN (09:00)
--- NOTE | 2020-12-22 09:17 | NUR ---
MESSAGE: Now [employer] said [phone] Mitch Pimentel IS in Afib, not SVT. Rate is 130s-170s fluctuating, and then going into RVR for short times. Let me know if you want new orders for HR. Mathew [id number]
[2020-12-22] MEDS ORDERED: diltiazem 5mg/ml 5ml inj. IV ONE (09:45)
[2020-12-22 10:24] VITALS: BP 136/73
--- NOTE | 2020-12-22 10:29 | NUR ---
New order from Dr. Murray for one time 10 mg Cardizem push for AFIB w/ RVR. Patient received push, now HR is 130s-140s in AFIB. Will continue to monitor.
[2020-12-22 10:55] VITALS: BP 111/76
[2020-12-22 11:00] VITALS: BP 138/84
[2020-12-22] MEDS ORDERED: diltiazem 30mg tablet PO ONE (11:10)
[2020-12-22] MEDS ORDERED: diltiazem CD 120mg capsule (once-daily) PO ONE (11:25)
--- NOTE | 2020-12-22 13:23 | NUR ---
PAGER ID: [phone] MESSAGE: Mitch Velazquez [phone] current HR 135-145 Afib sustaining and BP 123/96, thank you, Laurel [facility] [phone]
[2020-12-22] MEDS: metoprolol succinate 25mg (24-HOUR) SR. Tablet PO SCH (14:26)
[2020-12-22 15:00] VITALS: BP 109/72
--- NOTE | 2020-12-22 15:57 | NUR ---
MESSAGE: Pt Mitch Pimentel [phone], it's been an hour and a half since metoprolol XL 25 mg was given, and HR is still 135-160, rn telemetry said it hit 170s at one point. BP is 98/62. Just letting you know, thank Laurel guzman [id number]
[2020-12-22 18:00] VITALS: BP 124/70
--- NOTE | 2020-12-22 18:27 | NUR ---
Problems reprioritized. Patient report given, questions answered & plan of care reviewed with Fariha HENDERSON.
--- NOTE | 2020-12-22 19:19 | NUR ---
Pt in watching TV denied any discomfort. No respiratory distress noted. Call light bedside commode and table place within reach. Pt instructed to call for assistance.
[2020-12-23] VITALS (9 sets, daily range): BP systolic 108–147; BP diastolic 70–84
--- NOTE | 2020-12-23 00:15 | NUR ---
Pt assisted to the bathroom, pt still having liqquid stool , medication and PO fluid given.
[2020-12-23] MEDS: loperamide 2mg capsule PO PRN (00:29)
--- NOTE | 2020-12-23 04:27 | NUR ---
Rounding in progress, PO fluid given. Pt encouraged to use the bathroom but has no need at this time.Vitals remained unchanged
--- NOTE | 2020-12-23 06:25 | NUR ---
Patient in room PCU 3008. I have received report from Fariha HENDERSON and had the opportunity to ask questions and assume patient care.
[2020-12-23 06:56] LABS: BASOPHILS % (AUTO) 0 % (0-1); EOSINOPHILS # (AUTO) 0.1 X10'3 (0-0.9); EOSINOPHILS % (AUTO) 0.3 % (0-6); HEMATOCRIT 47.2 % (42.0-52.0); HEMOGLOBIN 16.5 g/dl (14.0-17.9); LYMPHOCYTES # (AUTO) 0.7 X10'3 (1.1-4.8); LYMPHOCYTES % (AUTO) 3.5 % (21-51); MEAN CORPUSCULAR HEMOGLOBIN 30.8 PG (27.0-31.0); MEAN CORPUSCULAR HGB CONC 34.8 g/dL (33.0-36.5); MEAN CORPUSCULAR VOLUME 88.3 FL (78-98); MEAN PLATELET VOLUME 7.4 FL (7.4-10.4); MONOCYTES # (AUTO) 0.8 X10'3 (0-0.9); MONOCYTES % (AUTO) 3.8 % (2-12); NEUTROPHILS # (AUTO) 19.6 X10'3 (1.8-7.7); NEUTROPHILS % (AUTO) 92.4 % (42-75); PLATELET COUNT 345 X10'3 (140-440); RED BLOOD COUNT 5.35 X10'6 (4.70-6.10); RED CELL DISTRIBUTION WIDTH 13.7 % (11.5-14.5); WHITE BLOOD COUNT 21.2 X10'3 (4.5-11.0)
[2020-12-23 07:12] LABS: ALBUMIN 2.7 G/DL (3.4-5.0); ANION GAP 12 (8-16); BLOOD UREA NITROGEN 29 MG/DL (7-18); BUN/CREATININE RATIO 31.5 (5.4-32.0); CALCIUM 7.8 MG/DL (8.5-10.1); CHLORIDE 106 MMOL/L (99-107); CREATININE 0.92 MG/DL (0.60-1.10); GLUCOSE 145 MG/DL (70-104); POTASSIUM 4.7 MMOL/L (3.5-5.1); SODIUM 139 MMOL/L (135-145); TOTAL CARBON DIOXIDE 20.6 MMOL/L (24-32); eGFR 85 ML/MIN
[2020-12-23] MEDS: K and/or MAG REPLACEMENT MC SCH ×2 (08:00→20:00)
[2020-12-23] MEDS: metoprolol succinate 25mg (24-HOUR) SR. Tablet PO SCH (08:25)
[2020-12-23] MEDS: docusate sod 100mg capsule PO SCH ×2 (08:25→20:00)
[2020-12-23] MEDS: diltiazem CD 180mg cap (once-daily) PO SCH (08:26)
[2020-12-23] MEDS: enoxaparin 100mg/ml syringe SUBCUT SCH ×2 (08:26→20:56)
[2020-12-23] MEDS: dexamethasone 6 MG in D5W 100ml IV soln IV SCH ×2 (08:26→20:55)
--- NOTE | 2020-12-23 10:55 | NUR ---
Paged Dr. Murray PAGER ID: [phone] MESSAGE: [facility] rm [phone] Margarito Mitch at 1145 Vital Signs 119/87. HR (140's- 150's) O2 is 93% BIPAP FIO2 80, 60 Liters. Kezia HENDERSON 54
[2020-12-23] MEDS: diltiazem CD 120mg capsule (once-daily) PO SCH (11:09)
--- NOTE | 2020-12-23 11:15 | NUR ---
received order for addition dose of Cardizem CD 120mg. per Dr. Murray
[2020-12-23] MEDS: normal saline 1000ml 1,000 ML IV SCH (14:40)
--- NOTE | 2020-12-23 18:30 | NUR ---
hvac technician residential reported pt's saturation is 78%, found pt in bed AAOX4 on CPAP with a pressure of 10 and 65 % of FIO2 , respiratory presents assessing pt. Pt saturating 90% while i was in the room. Pt denied any discomfort.
--- NOTE | 2020-12-23 18:42 | NUR ---
Problems reprioritized. Patient report given, questions answered & plan of care reviewed with Fariha HENDERSON.
--- NOTE | 2020-12-23 19:00 | NUR ---
Pt in bed awake and alert in no apparent distress. Pt on CPAP pressure 10 and 65 % FIO2. IV fluid infusing via left ac med lock. HOB elevated . Call light bedside commode and bedside table within reach. Continue to monitor respiratory status.
[2020-12-24 02:00] VITALS: BP 125/87
--- NOTE | 2020-12-24 04:35 | NUR ---
AM care done, bed linen changed. Pt now resting quietly in bed watching TV. IV at O in progress.
[2020-12-24 06:00] VITALS: BP 144/91
[2020-12-24] MEDS: K and/or MAG REPLACEMENT MC SCH ×2 (08:00→20:00)
[2020-12-24] MEDS: dexamethasone 6 MG in D5W 100ml IV soln IV SCH ×2 (08:33→20:53)
[2020-12-24] MEDS: docusate sod 100mg capsule PO SCH ×2 (08:34→20:52)
[2020-12-24] MEDS: metoprolol succinate 25mg (24-HOUR) SR. Tablet PO SCH (08:34)
[2020-12-24] MEDS: diltiazem CD 180mg cap (once-daily) PO SCH (08:34)
[2020-12-24] MEDS: acetaminophen 325mg tablet PO PRN (08:34)
[2020-12-24] MEDS: diltiazem CD 120mg capsule (once-daily) PO SCH (08:34)
[2020-12-24] MEDS: enoxaparin 100mg/ml syringe SUBCUT SCH ×2 (08:35→20:52)
[2020-12-24 09:26] LABS: BASOPHILS % (AUTO) 0.1 % (0-1); EOSINOPHILS % (AUTO) 0.1 % (0-6); HEMATOCRIT 48.9 % (42.0-52.0); HEMOGLOBIN 16.9 g/dl (14.0-17.9); LYMPHOCYTES # (AUTO) 0.6 X10'3 (1.1-4.8); LYMPHOCYTES % (AUTO) 2.5 % (21-51); MEAN CORPUSCULAR HEMOGLOBIN 30.6 PG (27.0-31.0); MEAN CORPUSCULAR HGB CONC 34.5 g/dL (33.0-36.5); MEAN CORPUSCULAR VOLUME 88.6 FL (78-98); MEAN PLATELET VOLUME 7.6 FL (7.4-10.4); MONOCYTES # (AUTO) 0.7 X10'3 (0-0.9); NEUTROPHILS # (AUTO) 21.5 X10'3 (1.8-7.7); NEUTROPHILS % (AUTO) 94.3 % (42-75); PLATELET COUNT 295 X10'3 (140-440); RED BLOOD COUNT 5.52 X10'6 (4.70-6.10); RED CELL DISTRIBUTION WIDTH 13.5 % (11.5-14.5); WHITE BLOOD COUNT 22.8 X10'3 (4.5-11.0)
[2020-12-24 09:59] LABS: ALBUMIN 2.8 G/DL (3.4-5.0); ANION GAP 13 (8-16); BLOOD UREA NITROGEN 27 MG/DL (7-18); BUN/CREATININE RATIO 30.3 (5.4-32.0); CALCIUM 7.7 MG/DL (8.5-10.1); CHLORIDE 104 MMOL/L (99-107); CREATININE 0.89 MG/DL (0.60-1.10); GLUCOSE 147 MG/DL (70-104); POTASSIUM 4.3 MMOL/L (3.5-5.1); SODIUM 134 MMOL/L (135-145); TOTAL CARBON DIOXIDE 17.4 MMOL/L (24-32); eGFR 88 ML/MIN
[2020-12-24 10:07] LABS: C-REACTIVE PROTEIN < 0.05 MG/DL (0.0-0.5)
[2020-12-24 10:41] LABS: D-DIMER 7.61 MG/L FEU (0-0.50)
[2020-12-24 11:00] VITALS: BP 146/85
--- NOTE | 2020-12-24 14:13 | NUR ---
Reassessment: Diet advanced to Regular 12/19 though Pt continues w/ low PO intake on Regular diet, avg 31% x 11 meals not meeting needs. Ensure Enlive TID currently unverified in EMR though pt could still benefit from ONS. LBM 12/23 receiving routine colace. Will continue to monitor and make recommendations as appropriate. Recs: 1. Continue Regular diet as tolerated 2. Ensure Enlive TID; pending MD approval 3. Bowel care per rx 4. Scaled wt this admit, weekly wt thereafter Addendum: 12/24/20 at [address] Amended: Links added.
[2020-12-24 15:00] VITALS: BP 138/78
[2020-12-24 18:00] VITALS: BP 133/99
--- NOTE | 2020-12-24 18:35 | NUR ---
Problems reprioritized. Patient report given, questions answered & plan of care reviewed with Alissa HENDERSON.
--- NOTE | 2020-12-24 18:41 | NUR ---
Patient in room PCU 3008. I have received report from BEATRIZ Mast and had the opportunity to ask questions and assume patient care.
[2020-12-24 22:00] VITALS: BP 140/88
[2020-12-25 02:00] VITALS: BP 143/81
[2020-12-25 06:00] VITALS: BP 144/72
--- NOTE | 2020-12-25 06:28 | NUR ---
Problems reprioritized. Patient report given, questions answered & plan of care reviewed with BEATRIZ Mast.
--- NOTE | 2020-12-25 06:50 | NUR ---
Patient in room PCU 3008. I have received report from Alissa HENDERSNO and had the opportunity to ask questions and assume patient care.
[2020-12-25] MEDS: K and/or MAG REPLACEMENT MC SCH ×2 (08:00→20:00)
[2020-12-25] MEDS: diltiazem CD 180mg cap (once-daily) PO SCH (08:16)
[2020-12-25] MEDS: docusate sod 100mg capsule PO SCH ×2 (08:16→20:00)
[2020-12-25] MEDS: diltiazem CD 120mg capsule (once-daily) PO SCH (08:16)
[2020-12-25] MEDS: metoprolol succinate 25mg (24-HOUR) SR. Tablet PO SCH (08:16)
[2020-12-25] MEDS: dexamethasone 6 MG in D5W 100ml IV soln IV SCH ×2 (08:16→20:26)
[2020-12-25] MEDS: acetaminophen 325mg tablet PO PRN (08:17)
[2020-12-25] MEDS: enoxaparin 100mg/ml syringe SUBCUT SCH ×2 (08:17→20:27)
--- NOTE | 2020-12-25 08:54 | NUR ---
paged Dr. Grullon PAGER ID: [phone] MESSAGE: U rm [phone] Mitch Pimentel, lung sounds have increased wheeze this am, Could we get a chest x-ray? Please advise Kezia HENDERSON [phone]
[2020-12-25 09:03] LABS: BASOPHILS % (AUTO) 0 % (0-1); EOSINOPHILS % (AUTO) 0.1 % (0-6); HEMATOCRIT 52.2 % (42.0-52.0); HEMOGLOBIN 17.3 g/dl (14.0-17.9); LYMPHOCYTES # (AUTO) 0.4 X10'3 (1.1-4.8); LYMPHOCYTES % (AUTO) 1.2 % (21-51); MEAN CORPUSCULAR HEMOGLOBIN 30.1 PG (27.0-31.0); MEAN CORPUSCULAR VOLUME 91.1 FL (78-98); MEAN PLATELET VOLUME 7.6 FL (7.4-10.4); MONOCYTES # (AUTO) 0.9 X10'3 (0-0.9); MONOCYTES % (AUTO) 2.9 % (2-12); NEUTROPHILS # (AUTO) 30.3 X10'3 (1.8-7.7); NEUTROPHILS % (AUTO) 95.8 % (42-75); PLATELET COUNT 280 X10'3 (140-440); RED BLOOD COUNT 5.73 X10'6 (4.70-6.10)
[2020-12-25 09:08] LABS: WHITE BLOOD COUNT 31.6 X10'3 (4.5-11.0)
[2020-12-25 09:14] LABS: D-DIMER 1.69 MG/L FEU (0-0.50)
--- NOTE | 2020-12-25 09:17 | NUR ---
Paged Dr. Grullon PAGER ID: [phone] MESSAGE: u [phone] Mitch Pimentel critical lab value WBC 31.6. Kezia HENDERSON [phone]
[2020-12-25] MEDS ORDERED: furosemide 40mg/4ml inj IV ONE (09:50)
[2020-12-25 09:56] LABS: ALBUMIN 2.8 G/DL (3.4-5.0); ANION GAP 15 (8-16); BLOOD UREA NITROGEN 27 MG/DL (7-18); BUN/CREATININE RATIO 32.1 (5.4-32.0); CALCIUM 7.8 MG/DL (8.5-10.1); CHLORIDE 102 MMOL/L (99-107); CREATININE 0.84 MG/DL (0.60-1.10); GLUCOSE 118 MG/DL (70-104); POTASSIUM 4.8 MMOL/L (3.5-5.1); SODIUM 135 MMOL/L (135-145); TOTAL CARBON DIOXIDE 18.2 MMOL/L (24-32); eGFR > 90 ML/MIN
[2020-12-25 10:00] LABS: PLATELET ESTIMATE NORMAL; TOTAL CELLS COUNTED 100
[2020-12-25 10:01] LABS: TOXIC GRANULATION 2+; TOXIC VACUOLATION FEW
[2020-12-25 11:00] VITALS: BP 123/89
[2020-12-25] MEDS ORDERED: vancomycin/NS 1 GM ADD-VANTAGE 250 ML X 1 DOSE IV ONE ×2 (11:20→12:00)
[2020-12-25] MEDS: aztreonam inj. 1,000 MG in normal saline 100ml IV soln 100 ML IV SCH ×3 (12:24→23:09)
[2020-12-25] MEDS: normal saline 1000ml 1,000 ML IV SCH (12:25)
--- NOTE | 2020-12-25 12:48 | NUR ---
Spoke with Andi the pharmacist Andi regarding the new medication order of Azactam 1000mg IV to be given every 8 hours. Medication was brought up by pharmacy and started at 1224 with run time of 1 hour, medication would be administered at 1330. The next dose was placed on the EMAR at 1600. The 1600 does of Azactam 1000mg IV is to soon to administer. Andi, the pharmacist will reschedule the next dose to meet the administration time of 8 hours.
[2020-12-25 15:00] VITALS: BP 138/70
--- NOTE | 2020-12-25 18:48 | NUR ---
Problems reprioritized. Patient report given, questions answered & plan of care reviewed with Pat RN.
[2020-12-25 19:45] VITALS: BP 142/99
--- NOTE | 2020-12-25 19:45 | NUR ---
pt on Hi Flow at 70L, decreased by RT to 60L; pt also on 15L nonrebreather; pt reports he's only SOB on exertion; pt request the bedpan to be available for later as getting [place] to the [facility] [place] significant SOB Addendum: 12/26/20 at 0034 by Malika Selby RN Amended: Links added.
[2020-12-25] MEDS: vancomycin/NS 1 GM ADD-VANTAGE 250 ML IV SCH (20:26)
[2020-12-25 23:15] VITALS: BP 117/79
[2020-12-26 02:00] VITALS: BP 149/90
[2020-12-26] MEDS: vancomycin/NS 1 GM ADD-VANTAGE 250 ML IV SCH (03:25)
[2020-12-26] MEDS ORDERED: diltiazem 5mg/ml 5ml inj. IV ONE ×3 (04:00→08:40)
[2020-12-26 06:00] VITALS: BP 125/80
[2020-12-26 07:06] LABS: HEMOGLOBIN 15.3 g/dl (14.0-17.9); MEAN PLATELET VOLUME 7.4 FL (7.4-10.4)
[2020-12-26 07:08] LABS: BASOPHILS % (AUTO) 0.2 % (0-1); EOSINOPHILS # (AUTO) 0.1 X10'3 (0-0.9); EOSINOPHILS % (AUTO) 0.5 % (0-6); HEMATOCRIT 44.6 % (42.0-52.0); LYMPHOCYTES # (AUTO) 0.5 X10'3 (1.1-4.8); LYMPHOCYTES % (AUTO) 2.3 % (21-51); MEAN CORPUSCULAR HEMOGLOBIN 30.3 PG (27.0-31.0); MEAN CORPUSCULAR HGB CONC 34.2 g/dL (33.0-36.5); MEAN CORPUSCULAR VOLUME 88.6 FL (78-98); MONOCYTES # (AUTO) 0.8 X10'3 (0-0.9); MONOCYTES % (AUTO) 3.6 % (2-12); NEUTROPHILS # (AUTO) 19.4 X10'3 (1.8-7.7); NEUTROPHILS % (AUTO) 93.4 % (42-75); PLATELET COUNT 239 X10'3 (140-440); RED BLOOD COUNT 5.04 X10'6 (4.70-6.10); RED CELL DISTRIBUTION WIDTH 13.8 % (11.5-14.5); WHITE BLOOD COUNT 20.8 X10'3 (4.5-11.0)
[2020-12-26 07:26] LABS: ALBUMIN 2.5 G/DL (3.4-5.0); ANION GAP 10 (8-16); BLOOD UREA NITROGEN 26 MG/DL (7-18); BUN/CREATININE RATIO 33.3 (5.4-32.0); C-REACTIVE PROTEIN 0.52 MG/DL (0.0-0.5); CALCIUM 7.3 MG/DL (8.5-10.1); CHLORIDE 103 MMOL/L (99-107); CREATININE 0.78 MG/DL (0.60-1.10); GLUCOSE 131 MG/DL (70-104); POTASSIUM 3.8 MMOL/L (3.5-5.1); SODIUM 133 MMOL/L (135-145); eGFR > 90 ML/MIN
[2020-12-26] MEDS: diltiazem CD 120mg capsule (once-daily) PO SCH (07:36)
[2020-12-26] MEDS: aztreonam inj. 1,000 MG in normal saline 100ml IV soln 100 ML IV SCH ×2 (07:36→16:59)
[2020-12-26] MEDS: furosemide 40mg/4ml inj IV SCH (07:36)
[2020-12-26] MEDS: metoprolol succinate 25mg (24-HOUR) SR. Tablet PO SCH (07:36)
[2020-12-26] MEDS: enoxaparin 100mg/ml syringe SUBCUT SCH ×2 (07:36→21:52)
[2020-12-26] MEDS: docusate sod 100mg capsule PO SCH ×2 (08:00→20:00)
[2020-12-26 08:19] LABS: D-DIMER 1.68 MG/L FEU (0-0.50)
[2020-12-26] MEDS ORDERED: diltiazem-NS 100mg/100ml 100 ML IV SCH (08:40)
[2020-12-26] MEDS: dexamethasone 6 MG in D5W 100ml IV soln IV SCH ×2 (08:56→21:52)
[2020-12-26] MEDS: loperamide 2mg capsule PO PRN ×2 (08:56→19:08)
[2020-12-26] MEDS ORDERED: digoxin 250mcg/ml 2ml ampule IV ONE ×2 (10:30→17:00)
[2020-12-26 11:00] VITALS: BP 126/86
--- NOTE | 2020-12-26 11:24 | NUR ---
Reassessment: Pt on 70L oxygen via HFNC per EMR. Pt continues w/ low PO intake on Regular diet, avg 37% x 8 meals not meeting needs. Ensure Enlive TID currently unverified in EMR, d/w RN that pt could still benefit from ONS. LBM 12/25 receiving routine colace. Will continue to monitor and make recommendations as appropriate. Recs: 1. Continue Regular diet as tolerated 2. Ensure Enlive TID; pending MD approval 3. Bowel care per rx 4. Scaled wt this admit, weekly wt thereafter Addendum: 12/26/20 at [address] Amended: Links added.
[2020-12-26] MEDS ORDERED: VANCOMYCIN LEVEL IV ONE (11:30)
[2020-12-26] MEDS: lactose-reduced food (Ensure Enlive) - 237ml bottle PO SCH ×2 (13:13→21:41)
[2020-12-26] MEDS ORDERED: metoprolol tartrate 1mg/ml inj IV ONE ×2 (13:40→16:40)
[2020-12-26] MEDS: VANCOmycin 1250MG/NS 250ml Bag 250 ML IV SCH ×2 (13:47→21:52)
[2020-12-26 15:00] VITALS: BP 116/75
[2020-12-26] MEDS ORDERED: metoprolol tartrate 1mg/ml inj IV PRN (16:40)
--- NOTE | 2020-12-26 18:20 | NUR ---
Patient in room PCU 3008. I have received report from BEATRIZ Mercado and had the opportunity to ask questions and assume patient care.
[2020-12-26 19:00] VITALS: BP 119/80
[2020-12-26] MEDS: K and/or MAG REPLACEMENT MC SCH (20:00)
[2020-12-26 23:00] VITALS: BP 124/83
[2020-12-27] MEDS ORDERED: digoxin 250mcg/ml 2ml ampule IV ONE (00:30)
[2020-12-27] MEDS: aztreonam inj. 1,000 MG in normal saline 100ml IV soln 100 ML IV SCH ×4 (00:48→23:52)
[2020-12-27 03:00] VITALS: BP 113/88
[2020-12-27] MEDS: VANCOmycin 1250MG/NS 250ml Bag 250 ML IV SCH ×2 (05:11→13:21)
[2020-12-27 06:00] VITALS: BP 111/86
--- NOTE | 2020-12-27 06:06 | NUR ---
Problems reprioritized. Patient report given, questions answered & plan of care reviewed with BEATRIZ Mercado.
[2020-12-27] MEDS: furosemide 40mg/4ml inj IV SCH (07:10)
[2020-12-27] MEDS: dexamethasone 6 MG in D5W 100ml IV soln IV SCH ×2 (07:10→21:24)
[2020-12-27] MEDS: enoxaparin 100mg/ml syringe SUBCUT SCH ×2 (07:11→21:23)
[2020-12-27] MEDS: diltiazem CD 120mg capsule (once-daily) PO SCH (07:12)
[2020-12-27] MEDS: docusate sod 100mg capsule PO SCH ×2 (07:51→20:00)
[2020-12-27] MEDS: lactose-reduced food (Ensure Enlive) - 237ml bottle PO SCH ×3 (08:00→21:00)
[2020-12-27] MEDS ORDERED: metoprolol succinate 25mg (24-HOUR) SR. Tablet PO SCH (08:00)
[2020-12-27 09:11] LABS: BASOPHILS % (AUTO) 0.2 % (0-1); EOSINOPHILS % (AUTO) 0.1 % (0-6); HEMATOCRIT 50.6 % (42.0-52.0); HEMOGLOBIN 17.2 g/dl (14.0-17.9); LYMPHOCYTES # (AUTO) 0.6 X10'3 (1.1-4.8); LYMPHOCYTES % (AUTO) 2.9 % (21-51); MEAN CORPUSCULAR HEMOGLOBIN 30.4 PG (27.0-31.0); MEAN CORPUSCULAR VOLUME 89.3 FL (78-98); MONOCYTES % (AUTO) 4.7 % (2-12); NEUTROPHILS # (AUTO) 18.9 X10'3 (1.8-7.7); NEUTROPHILS % (AUTO) 92.1 % (42-75); PLATELET COUNT 271 X10'3 (140-440); RED BLOOD COUNT 5.66 X10'6 (4.70-6.10); RED CELL DISTRIBUTION WIDTH 13.7 % (11.5-14.5); WHITE BLOOD COUNT 20.5 X10'3 (4.5-11.0)
[2020-12-27] MEDS: diltiazem CD 180mg cap (once-daily) PO SCH (09:16)
[2020-12-27 09:30] LABS: ANION GAP 10 (8-16); BLOOD UREA NITROGEN 26 MG/DL (7-18); BUN/CREATININE RATIO 29.2 (5.4-32.0); CALCIUM 7.6 MG/DL (8.5-10.1); CHLORIDE 102 MMOL/L (99-107); CREATININE 0.89 MG/DL (0.60-1.10); GLUCOSE 124 MG/DL (70-104); POTASSIUM 4.1 MMOL/L (3.5-5.1); SODIUM 137 MMOL/L (135-145); TOTAL CARBON DIOXIDE 24.9 MMOL/L (24-32); eGFR 88 ML/MIN
[2020-12-27 09:40] LABS: C-REACTIVE PROTEIN 0.13 MG/DL (0.0-0.5)
[2020-12-27] MEDS ORDERED: diltiazem 5mg/ml 5ml inj. IV ONE (09:40)
[2020-12-27 10:21] LABS: D-DIMER 1.71 MG/L FEU (0-0.50)
[2020-12-27 11:00] VITALS: BP 123/74
[2020-12-27] MEDS: diltiazem-NS 100mg/100ml 100 ML IV SCH ×2 (12:18→19:40)
[2020-12-27] MEDS ORDERED: VANCOMYCIN LEVEL IV ONE (12:30)
[2020-12-27] MEDS ORDERED: amiodarone 150mg/dext, iso-os 100 ML IV ONE (13:50)
[2020-12-27] MEDS: normal saline 1000ml 1,000 ML IV SCH (15:40)
[2020-12-27] MEDS: amiodarone/D5 360MG/200ML BAG 200 ML IV SCH ×2 (15:58→20:54)
[2020-12-27 16:00] VITALS: BP 116/87
--- NOTE | 2020-12-27 18:30 | NUR ---
Patient in room PCU 3008. I have received report from BEATRIZ Mercado and had the opportunity to ask questions and assume patient care.
[2020-12-27 20:00] VITALS: BP 119/85
[2020-12-27] MEDS: K and/or MAG REPLACEMENT MC SCH (20:00)
[2020-12-27] MEDS: metoprolol succinate 25mg (24-HOUR) SR. Tablet PO SCH (21:23)
[2020-12-28] VITALS (7 sets, daily range): BP systolic 118–144; BP diastolic 72–90
[2020-12-28] MEDS: amiodarone/D5 360MG/200ML BAG 200 ML IV SCH ×3 (02:50→14:06)
--- NOTE | 2020-12-28 03:10 | NUR ---
Patient is SR EKG interval 0.44 sec. B/P 118/79, P 78, O2 sat 89%, R 30.
--- NOTE | 2020-12-28 06:51 | NUR ---
Problems reprioritized. Patient report given, questions answered & plan of care reviewed with BEATRIZ Mercado.
[2020-12-28 07:12] LABS: D-DIMER 1.74 MG/L FEU (0-0.50)
[2020-12-28 07:27] LABS: C-REACTIVE PROTEIN 0.07 MG/DL (0.0-0.5)
[2020-12-28] MEDS: aztreonam inj. 1,000 MG in normal saline 100ml IV soln 100 ML IV SCH ×2 (07:43→13:36)
[2020-12-28] MEDS: dexamethasone 6 MG in D5W 100ml IV soln IV SCH ×2 (07:44→22:55)
[2020-12-28] MEDS: diltiazem CD 180mg cap (once-daily) PO SCH (07:44)
[2020-12-28] MEDS: enoxaparin 100mg/ml syringe SUBCUT SCH ×2 (07:44→22:56)
[2020-12-28] MEDS: furosemide 40mg/4ml inj IV SCH (07:44)
[2020-12-28] MEDS: metoprolol succinate 25mg (24-HOUR) SR. Tablet PO SCH ×2 (07:45→22:56)
[2020-12-28] MEDS: diltiazem CD 120mg capsule (once-daily) PO SCH (07:45)
[2020-12-28] MEDS: docusate sod 100mg capsule PO SCH ×2 (08:00→20:00)
[2020-12-28] MEDS: lactose-reduced food (Ensure Enlive) - 237ml bottle PO SCH ×3 (08:24→21:00)
[2020-12-28 09:38] LABS: ALANINE AMINOTRANSFERASE 104 U/L (12-78); ALBUMIN 2.9 G/DL (3.4-5.0); ALBUMIN/GLOBULIN RATIO 0.9 (1.1-1.5); ALKALINE PHOSPHATASE 92 IU/L (46-116); ANION GAP 12 (8-16); ASPARTATE AMINO TRANSFERASE 36 U/L (10-37); BILIRUBIN,TOTAL 0.8 MG/DL (0.1-1.0); BLOOD UREA NITROGEN 29 MG/DL (7-18); BUN/CREATININE RATIO 34.1 (5.4-32.0); CHLORIDE 102 MMOL/L (99-107); CREATININE 0.85 MG/DL (0.60-1.10); GLUCOSE 134 MG/DL (70-104); POTASSIUM 3.9 MMOL/L (3.5-5.1); SODIUM 137 MMOL/L (135-145); TOTAL PROTEIN 6.1 G/DL (6.4-8.2); eGFR > 90 ML/MIN
[2020-12-28 10:21] LABS: BASOPHILS # (AUTO) 0.1 X10'3 (0-0.2); BASOPHILS % (AUTO) 0.2 % (0-1); EOSINOPHILS % (AUTO) 0.1 % (0-6); HEMATOCRIT 49.4 % (42.0-52.0); HEMOGLOBIN 17.1 g/dl (14.0-17.9); LYMPHOCYTES # (AUTO) 0.4 X10'3 (1.1-4.8); LYMPHOCYTES % (AUTO) 1.7 % (21-51); MEAN CORPUSCULAR HEMOGLOBIN 30.7 PG (27.0-31.0); MEAN CORPUSCULAR HGB CONC 34.7 g/dL (33.0-36.5); MEAN CORPUSCULAR VOLUME 88.2 FL (78-98); MEAN PLATELET VOLUME 7.2 FL (7.4-10.4); MONOCYTES # (AUTO) 0.7 X10'3 (0-0.9); MONOCYTES % (AUTO) 2.9 % (2-12); NEUTROPHILS # (AUTO) 22.6 X10'3 (1.8-7.7); NEUTROPHILS % (AUTO) 95.1 % (42-75); PLATELET COUNT 276 X10'3 (140-440); RED BLOOD COUNT 5.59 X10'6 (4.70-6.10); RED CELL DISTRIBUTION WIDTH 13.5 % (11.5-14.5); WHITE BLOOD COUNT 23.7 X10'3 (4.5-11.0)
[2020-12-28] MEDS ORDERED: diltiazem CD 180mg cap (once-daily) PO ONE (10:25)
[2020-12-28] MEDS ORDERED: amiodarone 200mg tablet PO ONE (10:25)
[2020-12-28] MEDS ORDERED: diltiazem CD 120mg capsule (once-daily) PO ONE (11:10)
[2020-12-28] MEDS: K and/or MAG REPLACEMENT MC SCH (20:00)
[2020-12-28] MEDS: lactobacillus rhamnosus 10,000 MMU CELLS/CAPSULE PO SCH (22:56)
[2020-12-28] MEDS: amiodarone 200mg tablet PO SCH (22:57)
[2020-12-29] MEDS: aztreonam inj. 1,000 MG in normal saline 100ml IV soln 100 ML IV SCH ×3 (01:44→16:11)
[2020-12-29 03:00] VITALS: BP 109/77
--- NOTE | 2020-12-29 06:23 | NUR ---
Patient in room PCU 3008. I have received report from CJ HENDERSON and had the opportunity to ask questions and assume patient care.
--- NOTE | 2020-12-29 06:24 | NUR ---
Problems reprioritized. Patient report given, questions answered & plan of care reviewed with BEATRIZ Barragan.
[2020-12-29 07:00] VITALS: BP 127/81
[2020-12-29] MEDS: benzocaine/menthol oral lozeng 1 EACH BOX MM PRN (07:54)
[2020-12-29 07:55] LABS: D-DIMER 2.02 MG/L FEU (0-0.50)
[2020-12-29] MEDS: dexamethasone 6 MG in D5W 100ml IV soln IV SCH ×2 (07:55→22:05)
[2020-12-29 07:56] LABS: BASOPHILS % (AUTO) 0 % (0-1); EOSINOPHILS % (AUTO) 0.1 % (0-6); HEMATOCRIT 46.8 % (42.0-52.0); HEMOGLOBIN 16.1 g/dl (14.0-17.9); LYMPHOCYTES # (AUTO) 0.8 X10'3 (1.1-4.8); MEAN CORPUSCULAR HEMOGLOBIN 30.5 PG (27.0-31.0); MEAN CORPUSCULAR HGB CONC 34.4 g/dL (33.0-36.5); MEAN CORPUSCULAR VOLUME 88.5 FL (78-98); MEAN PLATELET VOLUME 8.1 FL (7.4-10.4); MONOCYTES % (AUTO) 4.6 % (2-12); NEUTROPHILS # (AUTO) 19.5 X10'3 (1.8-7.7); NEUTROPHILS % (AUTO) 91.3 % (42-75); PLATELET COUNT 257 X10'3 (140-440); RED BLOOD COUNT 5.29 X10'6 (4.70-6.10); RED CELL DISTRIBUTION WIDTH 13.9 % (11.5-14.5); WHITE BLOOD COUNT 21.4 X10'3 (4.5-11.0)
[2020-12-29] MEDS: diltiazem CD 180mg cap (once-daily) PO SCH (07:56)
[2020-12-29] MEDS: docusate sod 100mg capsule PO SCH ×2 (07:56→20:00)
[2020-12-29] MEDS: diltiazem CD 120mg capsule (once-daily) PO SCH (07:56)
[2020-12-29] MEDS: metoprolol succinate 25mg (24-HOUR) SR. Tablet PO SCH ×2 (07:56→22:06)
[2020-12-29] MEDS: furosemide 40mg/4ml inj IV SCH (07:56)
[2020-12-29] MEDS: lactobacillus rhamnosus 10,000 MMU CELLS/CAPSULE PO SCH ×2 (07:56→22:06)
[2020-12-29] MEDS: amiodarone 200mg tablet PO SCH ×2 (07:56→22:07)
[2020-12-29] MEDS: enoxaparin 100mg/ml syringe SUBCUT SCH ×2 (07:56→22:06)
[2020-12-29] MEDS: K and/or MAG REPLACEMENT MC SCH ×2 (08:00→20:00)
[2020-12-29] MEDS: lactose-reduced food (Ensure Enlive) - 237ml bottle PO SCH ×3 (08:00→21:00)
[2020-12-29 08:07] LABS: ALANINE AMINOTRANSFERASE 86 U/L (12-78); ALBUMIN 2.7 G/DL (3.4-5.0); ALBUMIN/GLOBULIN RATIO 0.9 (1.1-1.5); ALKALINE PHOSPHATASE 88 IU/L (46-116); ANION GAP 11 (8-16); ASPARTATE AMINO TRANSFERASE 29 U/L (10-37); BILIRUBIN,TOTAL 0.8 MG/DL (0.1-1.0); BLOOD UREA NITROGEN 32 MG/DL (7-18); BUN/CREATININE RATIO 38.6 (5.4-32.0); CALCIUM 8.1 MG/DL (8.5-10.1); CHLORIDE 105 MMOL/L (99-107); CREATININE 0.83 MG/DL (0.60-1.10); GLUCOSE 141 MG/DL (70-104); POTASSIUM 4.3 MMOL/L (3.5-5.1); SODIUM 141 MMOL/L (135-145); TOTAL CARBON DIOXIDE 24.8 MMOL/L (24-32); TOTAL PROTEIN 5.6 G/DL (6.4-8.2); eGFR > 90 ML/MIN
[2020-12-29 08:08] LABS: C-REACTIVE PROTEIN < 0.05 MG/DL (0.0-0.5)
--- NOTE | 2020-12-29 09:04 | NUR ---
Reassessment: Pt now on 100% BiPAP per MD note. Pt continues w/ low PO intake on Regular diet, avg 22% x 9 meals though w/ 100% intake of ONS partially meeting needs. IF PO remains low, may consider supplemental TF to help meet nutrient needs. LBM 12/27 receiving routine colace. Will continue to monitor and make recommendations as appropriate. Recs: 1. Continue Regular diet as tolerated 2. Ensure Enlive TID 3. Bowel care per rx 4. Scaled wt this admit, weekly wt thereafter 5. IF PO remains low, consider supplemental NGTF Addendum: 12/29/20 at [address] Amended: Links added.
--- NOTE | 2020-12-29 09:30 | NUR ---
PAGER ID: [phone] MESSAGE: CAN I GET MORPHINE OR ATIVAN PLEASE FOR [address] MYLES? GOT HIM BACK ON BIPAP BUT NEED SOMETHING FOR RELAXING OR WORK OF BREATHING. ELVIRA [id number]
[2020-12-29] MEDS: morphine 10mg/0.5ml (conc. morphine) oral syringe PO PRN ×3 (09:43→16:11)
[2020-12-29 09:45] LABS: ABG BASE EXCESS 2.9 mmol/L (-2.0-2.0); ABG HCO3 24.9 mmol/L (22.0-26.0); ABG OXYGEN SATURATION 82.8 % (94-97); ABG PCO2 (T) 31.9 mmHg (35.0-48.0); ABG PO2 (T) 42.7 mmHg (75.0-100.0); ALLEN'S TEST POSITIVE; FCOHb 0.3 % (0.0-3.9); FMetHb 0.3 % (0.0-1.5); FO2Hb 82.3 % (94-97); TOTAL HEMOGLOBIN 18.2 G/dl (14.0-18.0)
[2020-12-29] MEDS ORDERED: albuterol 2.5 MG/3 ML nebule NEB PRN (09:55)
[2020-12-29] MEDS: LORazepam 2 mg/ml vial IV PRN ×2 (10:07→13:28)
--- NOTE | 2020-12-29 10:52 | NUR ---
Rapid response called because patient was saturating 77% on HF 80L and 100% FiO2, with a non-rebreather on top of that at 15L. Pt initially refused Bipap because his nose was sore and also anxiety, but agreed to try it again. Received orders for Stat ABG, and Roxanol 10mg q2h PRN for work of breathing and 0.5 mg IV Ativan q4h PRN for anxiety. Bandage changed on bridge of nose, gecko applied over that, bipap set to 100%, and patient tolerating well, saturating at 91%. Will continue to monitor cl
[2020-12-29 11:00] VITALS: BP 103/78
[2020-12-29] MEDS: ipratropium/albuterol 3ml nebule NEB SCH ×4 (11:00→23:46)
[2020-12-29] MEDS ORDERED: VANCOMYCIN LEVEL IV ONE (12:30)
[2020-12-29] MEDS: loperamide 2mg capsule PO PRN (13:28)
[2020-12-29 15:00] VITALS: BP 111/84
[2020-12-29] MEDS: normal saline 1000ml 1,000 ML IV SCH (16:11)
[2020-12-29] MEDS ORDERED: ondansetron 4mg rapidly disintigrating tab PO PRN (16:20)
--- NOTE | 2020-12-29 18:13 | NUR ---
6Problems reprioritized. Patient report given, questions answered & plan of care reviewed with Alice HENDERSON.
--- NOTE | 2020-12-29 18:19 | NUR ---
Problems reprioritized. Patient report given, questions answered & plan of care reviewed with Alice HENDERSON.
--- NOTE | 2020-12-29 18:20 | NUR ---
Patient in room PCU 3008. I have received report from BEATRIZ Barragan and had the opportunity to ask questions and assume patient care.
[2020-12-29 19:00] VITALS: BP 120/85
[2020-12-29 23:00] VITALS: BP 112/83
[2020-12-30] MEDS: aztreonam inj. 1,000 MG in normal saline 100ml IV soln 100 ML IV SCH ×3 (01:11→16:27)
[2020-12-30 03:00] VITALS: BP 119/76
[2020-12-30] MEDS: ipratropium/albuterol 3ml nebule NEB SCH ×6 (03:41→23:22)
[2020-12-30] MEDS ORDERED: VANCOMYCIN LEVEL IV ONE ×2 (04:30→12:30)
[2020-12-30 06:15] LABS: BASOPHILS % (AUTO) 0.1 % (0-1); EOSINOPHILS % (AUTO) 0.1 % (0-6); HEMOGLOBIN 15.5 g/dl (14.0-17.9); LYMPHOCYTES % (AUTO) 5.2 % (21-51); MEAN CORPUSCULAR HEMOGLOBIN 30.4 PG (27.0-31.0); MEAN CORPUSCULAR HGB CONC 34.4 g/dL (33.0-36.5); MEAN CORPUSCULAR VOLUME 88.2 FL (78-98); MEAN PLATELET VOLUME 7.8 FL (7.4-10.4); MONOCYTES % (AUTO) 5.1 % (2-12); NEUTROPHILS # (AUTO) 17.4 X10'3 (1.8-7.7); NEUTROPHILS % (AUTO) 89.5 % (42-75); PLATELET COUNT 255 X10'3 (140-440); RED BLOOD COUNT 5.11 X10'6 (4.70-6.10); RED CELL DISTRIBUTION WIDTH 13.7 % (11.5-14.5); WHITE BLOOD COUNT 19.4 X10'3 (4.5-11.0)
[2020-12-30 06:24] LABS: ALANINE AMINOTRANSFERASE 85 U/L (12-78); ALBUMIN 2.6 G/DL (3.4-5.0); ALBUMIN/GLOBULIN RATIO 0.9 (1.1-1.5); ALKALINE PHOSPHATASE 68 IU/L (46-116); ANION GAP 11 (8-16); ASPARTATE AMINO TRANSFERASE 25 U/L (10-37); BILIRUBIN,TOTAL 0.8 MG/DL (0.1-1.0); BLOOD UREA NITROGEN 33 MG/DL (7-18); BUN/CREATININE RATIO 39.8 (5.4-32.0); CALCIUM 7.9 MG/DL (8.5-10.1); CHLORIDE 106 MMOL/L (99-107); CREATININE 0.83 MG/DL (0.60-1.10); GLUCOSE 143 MG/DL (70-104); POTASSIUM 4.5 MMOL/L (3.5-5.1); SODIUM 142 MMOL/L (135-145); TOTAL CARBON DIOXIDE 24.7 MMOL/L (24-32); TOTAL PROTEIN 5.5 G/DL (6.4-8.2); VANCOMYCIN,TROUGH 14.1 UG/ML (6.0-14.0); eGFR > 90 ML/MIN
[2020-12-30 06:31] LABS: C-REACTIVE PROTEIN < 0.05 MG/DL (0.0-0.5)
[2020-12-30 06:38] LABS: D-DIMER 0.79 MG/L FEU (0-0.50)
--- NOTE | 2020-12-30 06:45 | NUR ---
Patient in room PCU 3008. I have received report from CJ HENDERSON and had the opportunity to ask questions and assume patient care.
--- NOTE | 2020-12-30 06:46 | NUR ---
Problems reprioritized. Patient report given, questions answered & plan of care reviewed with BEATRIZ Barragan.
[2020-12-30 07:00] VITALS: BP 116/69
[2020-12-30] MEDS: morphine 10mg/0.5ml (conc. morphine) oral syringe PO PRN (07:12)
[2020-12-30] MEDS: K and/or MAG REPLACEMENT MC SCH ×2 (08:00→20:00)
[2020-12-30] MEDS: docusate sod 100mg capsule PO SCH ×2 (08:00→20:00)
[2020-12-30] MEDS: dexamethasone 6 MG in D5W 100ml IV soln IV SCH (08:54)
[2020-12-30] MEDS: furosemide 40mg/4ml inj IV SCH (08:54)
[2020-12-30] MEDS: LORazepam 2 mg/ml vial IV PRN ×2 (08:54→19:24)
[2020-12-30] MEDS: metoprolol succinate 25mg (24-HOUR) SR. Tablet PO SCH ×2 (08:55→19:22)
[2020-12-30] MEDS: diltiazem CD 180mg cap (once-daily) PO SCH (08:55)
[2020-12-30] MEDS: diltiazem CD 120mg capsule (once-daily) PO SCH (08:55)
[2020-12-30] MEDS: amiodarone 200mg tablet PO SCH ×2 (08:55→19:22)
[2020-12-30] MEDS: lactobacillus rhamnosus 10,000 MMU CELLS/CAPSULE PO SCH ×2 (08:55→19:22)
[2020-12-30] MEDS: lactose-reduced food (Ensure Enlive) - 237ml bottle PO SCH ×3 (08:56→21:00)
[2020-12-30] MEDS: loperamide 2mg capsule PO PRN (08:56)
[2020-12-30] MEDS: enoxaparin 100mg/ml syringe SUBCUT SCH ×2 (08:56→19:24)
[2020-12-30 11:00] VITALS: BP 121/82
[2020-12-30] MEDS: morphine 2 MG/ML inj. syringe IV PRN ×3 (12:14→21:59)
[2020-12-30] MEDS: vancomycin inj 1,750 MG in normal saline 500ml IV soln 350 ML IV SCH ×2 (12:53→23:16)
[2020-12-30] MEDS ORDERED: vancomycin inj 1,750 MG in normal saline 500ml IV soln 350 ML IV SCH (13:00)
[2020-12-30 15:00] VITALS: BP 111/82
[2020-12-30 18:30] VITALS: BP 117/83
--- NOTE | 2020-12-30 18:31 | NUR ---
Problems reprioritized. Patient report given, questions answered & plan of care reviewed with Fariha HENDERSON.
[2020-12-30] MEDS: benzocaine/menthol oral lozeng 1 EACH BOX MM PRN (19:32)
--- NOTE | 2020-12-30 19:41 | NUR ---
Pt in bed AAO, not in any apparent distress, receiving oxygen via BIPAP and saturating well. Resp at bedside giving him a treatment. Pt medicated as ordered. Call light and bedside table within reach. Ensure and water provided. i
--- NOTE | 2020-12-30 21:34 | NUR ---
Pt on BIPAP remains in stable condition. Monitor's battery change done. Hydration given.
[2020-12-30 22:01] VITALS: BP 109/73
[2020-12-31] MEDS: aztreonam inj. 1,000 MG in normal saline 100ml IV soln 100 ML IV SCH ×3 (01:17→15:24)
[2020-12-31 02:52] VITALS: BP 111/73
[2020-12-31] MEDS: ipratropium/albuterol 3ml nebule NEB SCH ×6 (03:21→23:13)
--- NOTE | 2020-12-31 03:59 | NUR ---
Pt watching TV denied any discomfort. No respiratory distress noted, Hydration offered and pt refused at this time.
--- NOTE | 2020-12-31 05:46 | NUR ---
Pt remains in stable condition without complaints. Saturating well on the BIPAP.
[2020-12-31] MEDS: morphine 2 MG/ML inj. syringe IV PRN ×3 (06:31→17:42)
--- NOTE | 2020-12-31 06:34 | NUR ---
Patient in room PCU 3008. I have received report from Fariha HENDERSON and had the opportunity to ask questions and assume patient care.
[2020-12-31 07:00] VITALS: BP 118/79
[2020-12-31] MEDS: vancomycin inj 1,750 MG in normal saline 500ml IV soln 350 ML IV SCH ×2 (07:02→13:20)
[2020-12-31 07:32] LABS: BASOPHILS % (AUTO) 0.1 % (0-1); EOSINOPHILS # (AUTO) 0.1 X10'3 (0-0.9); EOSINOPHILS % (AUTO) 0.4 % (0-6); HEMATOCRIT 45.1 % (42.0-52.0); HEMOGLOBIN 15.2 g/dl (14.0-17.9); LYMPHOCYTES % (AUTO) 5.8 % (21-51); MEAN CORPUSCULAR HEMOGLOBIN 30.1 PG (27.0-31.0); MEAN CORPUSCULAR HGB CONC 33.7 g/dL (33.0-36.5); MEAN CORPUSCULAR VOLUME 89.1 FL (78-98); MEAN PLATELET VOLUME 7.6 FL (7.4-10.4); MONOCYTES # (AUTO) 1.1 X10'3 (0-0.9); MONOCYTES % (AUTO) 6.4 % (2-12); NEUTROPHILS # (AUTO) 15.5 X10'3 (1.8-7.7); NEUTROPHILS % (AUTO) 87.3 % (42-75); PLATELET COUNT 248 X10'3 (140-440); RED BLOOD COUNT 5.06 X10'6 (4.70-6.10); RED CELL DISTRIBUTION WIDTH 13.7 % (11.5-14.5); WHITE BLOOD COUNT 17.8 X10'3 (4.5-11.0)
[2020-12-31] MEDS: lactose-reduced food (Ensure Enlive) - 237ml bottle PO SCH ×3 (08:00→17:41)
[2020-12-31] MEDS: K and/or MAG REPLACEMENT MC SCH ×2 (08:00→20:00)
[2020-12-31] MEDS: docusate sod 100mg capsule PO SCH ×2 (08:00→20:00)
[2020-12-31 08:33] LABS: D-DIMER 0.76 MG/L FEU (0-0.50)
[2020-12-31 08:37] LABS: ALANINE AMINOTRANSFERASE 72 U/L (12-78); ALBUMIN 2.5 G/DL (3.4-5.0); ALBUMIN/GLOBULIN RATIO 0.9 (1.1-1.5); ALKALINE PHOSPHATASE 65 IU/L (46-116); ANION GAP 8 (8-16); ASPARTATE AMINO TRANSFERASE 24 U/L (10-37); BILIRUBIN,TOTAL 0.7 MG/DL (0.1-1.0); BLOOD UREA NITROGEN 32 MG/DL (7-18); BUN/CREATININE RATIO 44.4 (5.4-32.0); CALCIUM 7.8 MG/DL (8.5-10.1); CHLORIDE 108 MMOL/L (99-107); CREATININE 0.72 MG/DL (0.60-1.10); GLUCOSE 124 MG/DL (70-104); POTASSIUM 4.4 MMOL/L (3.5-5.1); SODIUM 142 MMOL/L (135-145); TOTAL CARBON DIOXIDE 25.9 MMOL/L (24-32); TOTAL PROTEIN 5.4 G/DL (6.4-8.2); eGFR > 90 ML/MIN
[2020-12-31] MEDS: benzocaine/menthol oral lozeng 1 EACH BOX MM PRN ×2 (09:00→16:41)
[2020-12-31] MEDS: dexamethasone inj 6 MG in dextrose 5%-water 100 ML IV SCH (09:17)
[2020-12-31] MEDS: furosemide 40mg/4ml inj IV SCH (09:17)
[2020-12-31] MEDS: LORazepam 2 mg/ml vial IV PRN ×2 (09:17→15:25)
[2020-12-31] MEDS: enoxaparin 100mg/ml syringe SUBCUT SCH ×2 (09:18→20:25)
[2020-12-31] MEDS: amiodarone 200mg tablet PO SCH ×2 (09:18→20:25)
[2020-12-31] MEDS: lactobacillus rhamnosus 10,000 MMU CELLS/CAPSULE PO SCH ×2 (09:18→20:25)
[2020-12-31] MEDS: diltiazem CD 180mg cap (once-daily) PO SCH (09:18)
[2020-12-31] MEDS: metoprolol succinate 25mg (24-HOUR) SR. Tablet PO SCH ×2 (09:18→20:25)
[2020-12-31 11:00] VITALS: BP 105/67
[2020-12-31] MEDS ORDERED: VANCOMYCIN LEVEL IV ONE ×2 (12:30)
--- NOTE | 2020-12-31 18:31 | NUR ---
Problems reprioritized. Patient report given, questions answered & plan of care reviewed with Alice HENDERSON.
--- NOTE | 2020-12-31 18:32 | NUR ---
Patient in room PCU 3008. I have received report from BEATRIZ Barragan and had the opportunity to ask questions and assume patient care.
[2020-12-31 19:00] VITALS: BP 108/69
[2020-12-31 23:00] VITALS: BP 118/78
[2021-01-01] MEDS: aztreonam inj. 1,000 MG in normal saline 100ml IV soln 100 ML IV SCH ×2 (01:14→08:20)
[2021-01-01 03:00] VITALS: BP 115/82
[2021-01-01] MEDS ORDERED: VANCOMYCIN LEVEL IV ONE (03:00)
[2021-01-01] MEDS: ipratropium/albuterol 3ml nebule NEB SCH ×6 (03:14→23:24)
[2021-01-01] MEDS: benzocaine/menthol oral lozeng 1 EACH BOX MM PRN (03:40)
--- NOTE | 2021-01-01 06:14 | NUR ---
Problems reprioritized. Patient report given, questions answered & plan of care reviewed with BEATRIZ Holman.
[2021-01-01 07:28] LABS: BASOPHILS % (AUTO) 0.1 % (0-1); EOSINOPHILS # (AUTO) 0.2 X10'3 (0-0.9); EOSINOPHILS % (AUTO) 0.9 % (0-6); HEMATOCRIT 45.1 % (42.0-52.0); HEMOGLOBIN 15.3 g/dl (14.0-17.9); LYMPHOCYTES # (AUTO) 1.2 X10'3 (1.1-4.8); LYMPHOCYTES % (AUTO) 6.8 % (21-51); MEAN CORPUSCULAR HEMOGLOBIN 30.3 PG (27.0-31.0); MEAN CORPUSCULAR HGB CONC 33.9 g/dL (33.0-36.5); MEAN CORPUSCULAR VOLUME 89.5 FL (78-98); MEAN PLATELET VOLUME 7.1 FL (7.4-10.4); MONOCYTES # (AUTO) 1.2 X10'3 (0-0.9); MONOCYTES % (AUTO) 6.9 % (2-12); NEUTROPHILS % (AUTO) 85.3 % (42-75); PLATELET COUNT 245 X10'3 (140-440); RED BLOOD COUNT 5.04 X10'6 (4.70-6.10); RED CELL DISTRIBUTION WIDTH 13.7 % (11.5-14.5); WHITE BLOOD COUNT 17.6 X10'3 (4.5-11.0)
[2021-01-01] MEDS: K and/or MAG REPLACEMENT MC SCH ×2 (08:00→20:00)
[2021-01-01] MEDS: lactose-reduced food (Ensure Enlive) - 237ml bottle PO SCH ×3 (08:00→21:56)
[2021-01-01 08:01] LABS: ALANINE AMINOTRANSFERASE 86 U/L (12-78); ALBUMIN 2.7 G/DL (3.4-5.0); ALKALINE PHOSPHATASE 67 IU/L (46-116); ANION GAP 7 (8-16); ASPARTATE AMINO TRANSFERASE 22 U/L (10-37); BILIRUBIN,TOTAL 0.7 MG/DL (0.1-1.0); BLOOD UREA NITROGEN 29 MG/DL (7-18); BUN/CREATININE RATIO 38.7 (5.4-32.0); CALCIUM 8.1 MG/DL (8.5-10.1); CHLORIDE 107 MMOL/L (99-107); CREATININE 0.75 MG/DL (0.60-1.10); GLUCOSE 103 MG/DL (70-104); SODIUM 142 MMOL/L (135-145); TOTAL PROTEIN 5.5 G/DL (6.4-8.2); VANCOMYCIN,RANDOM 12.4 UG/ML; eGFR > 90 ML/MIN
[2021-01-01] MEDS: dexamethasone inj 6 MG in dextrose 5%-water 100 ML IV SCH (08:20)
[2021-01-01] MEDS: diltiazem CD 180mg cap (once-daily) PO SCH (08:20)
[2021-01-01] MEDS: amiodarone 200mg tablet PO SCH ×2 (08:20→21:18)
[2021-01-01] MEDS: lactobacillus rhamnosus 10,000 MMU CELLS/CAPSULE PO SCH ×2 (08:20→21:18)
[2021-01-01] MEDS: docusate sod 100mg capsule PO SCH ×2 (08:20→20:00)
[2021-01-01] MEDS: metoprolol succinate 25mg (24-HOUR) SR. Tablet PO SCH ×2 (08:20→21:18)
[2021-01-01] MEDS: enoxaparin 100mg/ml syringe SUBCUT SCH ×2 (08:20→21:17)
[2021-01-01] MEDS: furosemide 40mg/4ml inj IV SCH (08:21)
[2021-01-01 08:40] VITALS: BP 145/97
--- NOTE | 2021-01-01 08:40 | NUR ---
Reassessment: Pt now on 60% BiPAP per MD note. Pt continues w/ low PO intake on Regular diet, avg 30% x 9 meals though w/ 100% intake of ONS partially meeting needs. IF PO remains low, may consider supplemental TF to help meet nutrient needs. LBM 12/29 receiving routine colace. Will continue to monitor and make recommendations as appropriate. Recs: 1. Continue Regular diet as tolerated 2. Ensure Enlive TID 3. Bowel care per rx 4. Scaled wt this admit, weekly wt thereafter 5. IF PO remains low, consider supplemental NGTF if within plan of care Addendum: 01/01/21 at [address] Amended: Links added.
[2021-01-01 12:23] VITALS: BP 107/71
[2021-01-01] MEDS: morphine 2 MG/ML inj. syringe IV PRN ×3 (13:24→22:06)
[2021-01-01] MEDS: LORazepam 2 mg/ml vial IV PRN ×2 (13:24→17:55)
[2021-01-01 15:15] VITALS: BP 132/91
--- NOTE | 2021-01-01 18:20 | NUR ---
Patient in room PCU 3008. I have received report from BEATRIZ Holman and had the opportunity to ask questions and assume patient care.
[2021-01-01 19:00] VITALS: BP 108/79
[2021-01-01 23:00] VITALS: BP 115/83
[2021-01-02] MEDS: morphine 2 MG/ML inj. syringe IV PRN ×4 (02:24→20:48)
[2021-01-02 03:00] VITALS: BP 118/80
[2021-01-02] MEDS: ipratropium/albuterol 3ml nebule NEB SCH ×6 (03:33→23:00)
--- NOTE | 2021-01-02 06:10 | NUR ---
Problems reprioritized. Patient report given, questions answered & plan of care reviewed with BEATRIZ Spears.
[2021-01-02 07:19] LABS: BASOPHILS % (AUTO) 0.1 % (0-1); EOSINOPHILS # (AUTO) 0.3 X10'3 (0-0.9); EOSINOPHILS % (AUTO) 1.6 % (0-6); HEMATOCRIT 45.3 % (42.0-52.0); HEMOGLOBIN 15.3 g/dl (14.0-17.9); LYMPHOCYTES # (AUTO) 1.3 X10'3 (1.1-4.8); LYMPHOCYTES % (AUTO) 7.5 % (21-51); MEAN CORPUSCULAR HEMOGLOBIN 30.4 PG (27.0-31.0); MEAN CORPUSCULAR HGB CONC 33.8 g/dL (33.0-36.5); MEAN CORPUSCULAR VOLUME 89.7 FL (78-98); MEAN PLATELET VOLUME 7.1 FL (7.4-10.4); MONOCYTES # (AUTO) 0.9 X10'3 (0-0.9); MONOCYTES % (AUTO) 5.4 % (2-12); NEUTROPHILS # (AUTO) 14.4 X10'3 (1.8-7.7); NEUTROPHILS % (AUTO) 85.4 % (42-75); PLATELET COUNT 230 X10'3 (140-440); RED BLOOD COUNT 5.05 X10'6 (4.70-6.10); RED CELL DISTRIBUTION WIDTH 13.9 % (11.5-14.5); WHITE BLOOD COUNT 16.9 X10'3 (4.5-11.0)
[2021-01-02 07:33] LABS: ALANINE AMINOTRANSFERASE 81 U/L (12-78); ALBUMIN 2.7 G/DL (3.4-5.0); ALBUMIN/GLOBULIN RATIO 0.9 (1.1-1.5); ALKALINE PHOSPHATASE 65 IU/L (46-116); ANION GAP 7 (8-16); ASPARTATE AMINO TRANSFERASE 20 U/L (10-37); BILIRUBIN,TOTAL 0.8 MG/DL (0.1-1.0); BLOOD UREA NITROGEN 27 MG/DL (7-18); BUN/CREATININE RATIO 37.5 (5.4-32.0); CALCIUM 8.1 MG/DL (8.5-10.1); CHLORIDE 104 MMOL/L (99-107); CREATININE 0.72 MG/DL (0.60-1.10); GLUCOSE 106 MG/DL (70-104); POTASSIUM 3.6 MMOL/L (3.5-5.1); SODIUM 141 MMOL/L (135-145); TOTAL CARBON DIOXIDE 29.6 MMOL/L (24-32); TOTAL PROTEIN 5.7 G/DL (6.4-8.2); eGFR > 90 ML/MIN
[2021-01-02] MEDS: K and/or MAG REPLACEMENT MC SCH ×2 (08:00→20:00)
[2021-01-02] MEDS: lactose-reduced food (Ensure Enlive) - 237ml bottle PO SCH ×2 (08:00→21:00)
[2021-01-02] MEDS: metoprolol succinate 25mg (24-HOUR) SR. Tablet PO SCH ×2 (09:05→20:48)
[2021-01-02] MEDS: diltiazem CD 180mg cap (once-daily) PO SCH (09:05)
[2021-01-02] MEDS: lactobacillus rhamnosus 10,000 MMU CELLS/CAPSULE PO SCH ×2 (09:05→20:48)
[2021-01-02] MEDS: furosemide 40mg/4ml inj IV SCH (09:05)
[2021-01-02] MEDS: amiodarone 200mg tablet PO SCH ×2 (09:06→20:48)
[2021-01-02] MEDS: enoxaparin 100mg/ml syringe SUBCUT SCH ×2 (09:06→20:48)
[2021-01-02] MEDS: docusate sod 100mg capsule PO SCH ×2 (09:06→20:00)
[2021-01-02] MEDS: dexamethasone inj 6 MG in dextrose 5%-water 100 ML IV SCH (09:07)
--- NOTE | 2021-01-02 09:42 | NUR ---
MD Murray requesting change to NC when eating- trail meal. Paged RT 10 min ago and awaiting arrival
--- NOTE | 2021-01-02 10:30 | NUR ---
Rusu at bedside. pt switched to HFNC mode on nc 65% fio2. mouth breather, enc nasal breathing sat best at 86%. drank ensure and total of 15 min on nc requested return to bipap as sat settled to 75% . on bipap increased fio2 to 80% and he recovered in about 5 min to 94% . settled at 92% sat at 60% fio2, hr 109
[2021-01-02 12:07] VITALS: BP 109/71
[2021-01-02 15:00] VITALS: BP 110/35
--- NOTE | 2021-01-02 18:10 | NUR ---
Problems reprioritized. Patient report given, questions answered & plan of care reviewed with Alice HENDERSON
[2021-01-02 19:00] VITALS: BP 115/81
[2021-01-02] MEDS: mag hydrox/Alum hydrox/simeth 30ml oral suspension PO PRN (22:41)
[2021-01-02 23:00] VITALS: BP 130/86
[2021-01-03] VITALS (22 sets, daily range): BP systolic 67–114; BP diastolic 28–84
[2021-01-03] MEDS: LORazepam 2 mg/ml vial IV PRN ×3 (01:02→15:21)
[2021-01-03] MEDS: morphine 2 MG/ML inj. syringe IV PRN ×3 (01:02→10:32)
[2021-01-03] MEDS: ipratropium/albuterol 3ml nebule NEB SCH ×4 (02:36→15:00)
[2021-01-03] MEDS: mag hydrox/Alum hydrox/simeth 30ml oral suspension PO PRN (03:42)
--- NOTE | 2021-01-03 07:00 | NUR ---
bedpan, diarrhea 450ml browwn. poor nataly reposition for alegria.
[2021-01-03 07:01] LABS: BASOPHILS % (AUTO) 0.1 % (0-1); EOSINOPHILS # (AUTO) 0.4 X10'3 (0-0.9); EOSINOPHILS % (AUTO) 1.5 % (0-6); HEMATOCRIT 41.4 % (42.0-52.0); HEMOGLOBIN 14.1 g/dl (14.0-17.9); LYMPHOCYTES # (AUTO) 1.5 X10'3 (1.1-4.8); LYMPHOCYTES % (AUTO) 6.1 % (21-51); MEAN CORPUSCULAR HEMOGLOBIN 30.2 PG (27.0-31.0); MEAN CORPUSCULAR VOLUME 88.9 FL (78-98); MEAN PLATELET VOLUME 7.5 FL (7.4-10.4); MONOCYTES # (AUTO) 1.5 X10'3 (0-0.9); MONOCYTES % (AUTO) 6.2 % (2-12); NEUTROPHILS # (AUTO) 21.1 X10'3 (1.8-7.7); NEUTROPHILS % (AUTO) 86.1 % (42-75); PLATELET COUNT 244 X10'3 (140-440); RED BLOOD COUNT 4.66 X10'6 (4.70-6.10); RED CELL DISTRIBUTION WIDTH 13.7 % (11.5-14.5); WHITE BLOOD COUNT 24.5 X10'3 (4.5-11.0)
[2021-01-03] MEDS: lactobacillus rhamnosus 10,000 MMU CELLS/CAPSULE PO SCH (07:27)
[2021-01-03] MEDS: furosemide 40mg/4ml inj IV SCH (07:27)
[2021-01-03] MEDS: dexamethasone inj 6 MG in dextrose 5%-water 100 ML IV SCH (07:27)
[2021-01-03] MEDS: diltiazem CD 180mg cap (once-daily) PO SCH (07:27)
[2021-01-03] MEDS: amiodarone 200mg tablet PO SCH (07:27)
[2021-01-03] MEDS: docusate sod 100mg capsule PO SCH ×2 (07:27→08:00)
[2021-01-03] MEDS: metoprolol succinate 25mg (24-HOUR) SR. Tablet PO SCH (07:27)
[2021-01-03] MEDS: enoxaparin 100mg/ml syringe SUBCUT SCH (07:28)
[2021-01-03 07:29] LABS: ALANINE AMINOTRANSFERASE 88 U/L (12-78); ALBUMIN 2.5 G/DL (3.4-5.0); ALBUMIN/GLOBULIN RATIO 0.8 (1.1-1.5); ALKALINE PHOSPHATASE 61 IU/L (46-116); ANION GAP 11 (8-16); ASPARTATE AMINO TRANSFERASE 20 U/L (10-37); BLOOD UREA NITROGEN 34 MG/DL (7-18); BUN/CREATININE RATIO 45.3 (5.4-32.0); CHLORIDE 101 MMOL/L (99-107); CREATININE 0.75 MG/DL (0.60-1.10); GLUCOSE 161 MG/DL (70-104); POTASSIUM 4.1 MMOL/L (3.5-5.1); SODIUM 138 MMOL/L (135-145); TOTAL CARBON DIOXIDE 26.1 MMOL/L (24-32); TOTAL PROTEIN 5.6 G/DL (6.4-8.2); eGFR > 90 ML/MIN
[2021-01-03] MEDS: lactose-reduced food (Ensure Enlive) - 237ml bottle PO SCH (08:00)
--- NOTE | 2021-01-03 08:18 | NUR ---
RR 50's, fio2 85, paged RT.
--- NOTE | 2021-01-03 10:50 | NUR ---
help with meal. hhfnc for 20min with 100% fio2 an d nonrebreather at 15L. feels very sob rr 40-50. sats 95%. after a break of 10min he requested bedpan. sats only dropppped to 88 during alegria change, back on bipap for this at 100% during activity sats 92-93. after, decreased fio2 to 65. sats 97 while resting
--- NOTE | 2021-01-03 11:40 | NUR ---
2 pages to md delacruz regarding low bp and elevated wbc today. md delacruz came to floor and we discussed pt status. he reports checking pt just now. he is aware pt sbp 60's and 70's with map below 60. we looked at am q15 vs trends, tele is aware and trending freq vs . discussed am meds, po meds delayed admin form computer time d/t pt SOb and inabilit yto swallow until recovered. RR recovered aprox 1000. says no action now, no orders received, bolus denied. ordered to continue to monitor vs. pt was pink and asymptomatic while i was in room for aprox 30min( see last note) sats 96% on 65% fio2 when I left room at aprox 1130. Addendum: 01/04/21 at 0634 by Regan Quiroga RN Discussion with MD delacruz included charge nurse
--- NOTE | 2021-01-03 13:30 | NUR ---
received call back to this page sent at 1325- [facility] updated on trends of vs, and orders to dc lasix and give 500mlns bolus received. PAGER ID: [phone] MESSAGE: [phone]- barb Pimentel- and reflects his trend. Javy [phone]
[2021-01-03] MEDS ORDERED: normal saline 500ml IV soln 500 ML IV ONE ×2 (13:35→16:15)
[2021-01-03] MEDS: loperamide 2mg capsule PO PRN (14:00)
--- NOTE | 2021-01-03 16:10 | NUR ---
MD Murray called back after 2 pages - updated on diarrhea x5, anxiety, antivan and bp drops( see VS) as well as effects of ns bolus. new orders received.
--- NOTE | 2021-01-03 18:30 | NUR ---
Aprox this time during report with Susana HENDERSON i was notified by the aid that I sent to fix pt's oxygen probe which had just come off per [employer], that pt was showing patricia 30's changing to asystole on monitor. I rushed to check pt and found him without pulse and not breathing, called marlene quijano and began cpr immediately. Requested Aid to bring back board which came swiftly. code team arrived and set up for intubation and cpr. I offered report to ER doing intubation and to MD Sullivan who came shortly after. Addendum: 01/03/21 at 1921 by Regan Quiroga RN [phone] was time of checking pt and starting cpr
--- NOTE | 2021-01-03 19:30 | NUR ---
Code Blue completed at [address] Mancuso. ROSC not achieved. Family notified and Expiration Memorandum completed and placed in chart. Pt's personal property handed over to Olga, . Onel and Madeleine notified per family's request.
--- NOTE | 2021-01-04 07:34 | NUR ---
RN IS TO DOCUMENT YES TO ALL APPLICABLE AREAS Pronouncement of :YES 1. Time Physician Notified:[id number] 2. Date of :01/03/21 3. Time of :1900 4. DNR/Withdraw life support documented: 5. Monitor strip has been placed on chart:YES 6. Assessment process is of one-minute duration and includes following criteria: a) Patient is unresponsive to all stimuli: YES b) Pupils fixed and non-reactive:YES c) Auscultation of precordium reveals absence of heart tones:YES d) Auscultation of lungs reveals absence of breath sounds:YES e) Absence of blood pressure / all vital signs:YES f) QRS complexes are not present on monitor / EKG strip:YES g) Pacer spikes without capture:YES 4. Comments: Addendum: 01/04/21 at 0740 by Susana Álvarez RN Amended: Links added. Addendum: 01/04/21 at 0742 by Susana Álvarez RN The above narrative was noted on 01/03/21 at 1905.
== END 2021-01-03 19:01 | DRG 137 ==
LOC: ER 11:08 → ED HOLD 15:42 → EDBEDREQ 12-16 20:32 → PCU 3S 12-17 00:05
PROVIDERS: ADMIT Family Medicine; ATTEND Family Medicine
PROC: B32T1ZZ Computerized Tomography (CT Scan) of Left Pulmonary Artery using Low Osmolar Contrast (ICD-10-PCS; principal; 2020-12-15)
PROC: B3201ZZ Computerized Tomography (CT Scan) of Thoracic Aorta using Low Osmolar Contrast (ICD-10-PCS; 2020-12-15)
PROC: B32S1ZZ Computerized Tomography (CT Scan) of Right Pulmonary Artery using Low Osmolar Contrast (ICD-10-PCS; 2020-12-15)
PROC: XW033H5 Introduction of Tocilizumab into Peripheral Vein, Percutaneous Approach, New Technology Group 5 (ICD-10-PCS; 2020-12-15)
PROC: 5A0935A Assistance with Respiratory Ventilation, Less than 24 Consecutive Hours, High Flow/Velocity Cannula (ICD-10-PCS; 2020-12-15)
PROC: 5A09357 Assistance with Respiratory Ventilation, Less than 24 Consecutive Hours, Continuous Positive Airway Pressure (ICD-10-PCS; 2020-12-15)
PROC: XW033E5 Introduction of Remdesivir Anti-infective into Peripheral Vein, Percutaneous Approach, New Technology Group 5 (ICD-10-PCS; 2020-12-16)
PROC: 5A09457 Assistance with Respiratory Ventilation, 24-96 Consecutive Hours, Continuous Positive Airway Pressure (ICD-10-PCS; 2020-12-16)
PROC: 5A0935A Assistance with Respiratory Ventilation, Less than 24 Consecutive Hours, High Flow/Velocity Cannula (ICD-10-PCS; 2020-12-17)
PROC: 5A09357 Assistance with Respiratory Ventilation, Less than 24 Consecutive Hours, Continuous Positive Airway Pressure (ICD-10-PCS; 2020-12-17)
PROC: 5A0935A Assistance with Respiratory Ventilation, Less than 24 Consecutive Hours, High Flow/Velocity Cannula (ICD-10-PCS; 2020-12-18)
PROC: 5A09357 Assistance with Respiratory Ventilation, Less than 24 Consecutive Hours, Continuous Positive Airway Pressure (ICD-10-PCS; 2020-12-18)
PROC: 5A09457 Assistance with Respiratory Ventilation, 24-96 Consecutive Hours, Continuous Positive Airway Pressure (ICD-10-PCS; 2020-12-19)
PROC: 5A0935A Assistance with Respiratory Ventilation, Less than 24 Consecutive Hours, High Flow/Velocity Cannula (ICD-10-PCS; 2020-12-20)
PROC: 5A09357 Assistance with Respiratory Ventilation, Less than 24 Consecutive Hours, Continuous Positive Airway Pressure (ICD-10-PCS; 2020-12-21)
PROC: 5A0935A Assistance with Respiratory Ventilation, Less than 24 Consecutive Hours, High Flow/Velocity Cannula (ICD-10-PCS; 2020-12-23)
PROC: 5A09357 Assistance with Respiratory Ventilation, Less than 24 Consecutive Hours, Continuous Positive Airway Pressure (ICD-10-PCS; 2020-12-23)
PROC: 5A0935A Assistance with Respiratory Ventilation, Less than 24 Consecutive Hours, High Flow/Velocity Cannula (ICD-10-PCS; 2020-12-24)
PROC: 5A09357 Assistance with Respiratory Ventilation, Less than 24 Consecutive Hours, Continuous Positive Airway Pressure (ICD-10-PCS; 2020-12-24)
PROC: 5A0935A Assistance with Respiratory Ventilation, Less than 24 Consecutive Hours, High Flow/Velocity Cannula (ICD-10-PCS; 2020-12-25)
PROC: 5A09357 Assistance with Respiratory Ventilation, Less than 24 Consecutive Hours, Continuous Positive Airway Pressure (ICD-10-PCS; 2020-12-25)
PROC: 5A0935A Assistance with Respiratory Ventilation, Less than 24 Consecutive Hours, High Flow/Velocity Cannula (ICD-10-PCS; 2020-12-26)
PROC: 5A09357 Assistance with Respiratory Ventilation, Less than 24 Consecutive Hours, Continuous Positive Airway Pressure (ICD-10-PCS; 2020-12-26)
PROC: 5A0935A Assistance with Respiratory Ventilation, Less than 24 Consecutive Hours, High Flow/Velocity Cannula (ICD-10-PCS; 2020-12-27)
PROC: 5A09357 Assistance with Respiratory Ventilation, Less than 24 Consecutive Hours, Continuous Positive Airway Pressure (ICD-10-PCS; 2020-12-27)
PROC: 5A0935A Assistance with Respiratory Ventilation, Less than 24 Consecutive Hours, High Flow/Velocity Cannula (ICD-10-PCS; 2020-12-28)
PROC: 5A09357 Assistance with Respiratory Ventilation, Less than 24 Consecutive Hours, Continuous Positive Airway Pressure (ICD-10-PCS; 2020-12-28)
PROC: 5A09557 Assistance with Respiratory Ventilation, Greater than 96 Consecutive Hours, Continuous Positive Airway Pressure (ICD-10-PCS; 2020-12-29)
PROC: 5A0935A Assistance with Respiratory Ventilation, Less than 24 Consecutive Hours, High Flow/Velocity Cannula (ICD-10-PCS; 2021-01-03)
PROC: 5A09357 Assistance with Respiratory Ventilation, Less than 24 Consecutive Hours, Continuous Positive Airway Pressure (ICD-10-PCS; 2021-01-03)
PROC: 5A12012 Performance of Cardiac Output, Single, Manual (ICD-10-PCS; 2021-01-03)
DX: U07.1 COVID-19 (principal); J96.01 Acute respiratory failure with hypoxia; J12.82 Pneumonia due to coronavirus disease 2019; I95.9 Hypotension, unspecified; F17.210 Nicotine dependence, cigarettes, uncomplicated; B35.9 Dermatophytosis, unspecified; E66.01 Morbid (severe) obesity due to excess calories; I48.0 Paroxysmal atrial fibrillation; F41.9 Anxiety disorder, unspecified; I46.9 Cardiac arrest, cause unspecified; I48.91 Unspecified atrial fibrillation; Z88.0 Allergy status to penicillin; Z91.19 Patient's noncompliance with other medical treatment and regimen; Z71.6 Tobacco abuse counseling; Z68.30 Body mass index [BMI] 30.0-30.9, adult; Z79.899 Other long term (current) drug therapy
CPT/HCPCS: 36415; 36600; 71045; 71275; 80048; 80053; 80061; 80202; 81001; 82728; 82803; 83036; 83605; 83615; 83735; 83880; 84100; 84145; 84439; 84443; 84484; 85007; 85018; 85025; 85379; 85384; 85610; 85730; 86140; 87040; 87081; 87635; 92950; 93005; 93306; 94640; 94660; 94760; 96365; 96375; 97110; 97161; 97530; 99291; C9803; G0378; J1100; J1160; J1650; J1940; J2060; J2270; J3262; J3370; J3490; J7030; J7040; J7060; Q9967